=== PATIENT | female | born 1950 | race Caucasian/White ===

== ENCOUNTER 2019-02-28 00:27 | Inpatient (IN) | payer MEDICARE, OTHER ==
[~2019-02-28] VITALS: Ht 157.5 cm; Wt 84.4 kg
[~2019-02-28 00:27] MED LIST: ALBIPROI; CYCL10; DIAZ5; FURO40; HYDACE10B; METH10; Norco 5-325 Ta1 EACH PO; OXYC5; POTCHL10ER; Prednisone20 MG PO; SERT50
[2019-02-28 00:58] LABS: BASOPHILS ABSOLUTE AUTO 0.06 K/mm3 (0.00-0.23); BASOPHILS PERCENT AUTO 1 % (0-2); EOSINOPHILS PERCENT AUTO 0 % (0-6); Hematocrit 44.6 % (33.0-51.0); Mean Corpuscular HGB 35.5 pg (26.0-34.0); Mean Corpuscular HGB Conc 33.6 g/dL (31.5-36.5); Mean Corpuscular Volume 105 fL (80-100); Mean Platelet Volume 9.6 fL (9.1-12.4); Platelet Count 141 K/mm3 (150-400); RDW Coefficient Variation 12.2 % (11.7-14.2); RDW Standard Deviation 47.5 fL (35.1-46.3); Red Blood Cell Count 4.23 M/mm3 (3.80-5.20); White Blood Cell Count 6.38 K/mm3 (4.00-11.30)
[2019-02-28 00:59] LABS: IMMATURE GRAN ABSOLUTE AUTO 0.06 K/mm3 (0.00-0.10); IMMATURE GRAN PERCENT AUTO 1 % (0-1); LYMPHOCYTES ABSOLUTE AUTO 2.43 K/mm3 (0.84-5.20); LYMPHOCYTES PERCENT AUTO 38 % (21-46); MONOCYTES ABSOLUTE AUTO 0.52 K/mm3 (0.16-1.47); MONOCYTES PERCENT AUTO 8 % (4-13); NEUTROPHILS ABSOLUTE AUTO 3.31 K/mm3 (1.96-9.15); NEUTROPHILS PERCENT AUTO 52 % (41-73)
[2019-02-28 01:06] LABS: Source, Urine Clean Catch
[2019-02-28 01:09] LABS: Appearance, Urine Cloudy (Clear); Blood, Urine 2+ (Neg); Color, Urine Amber (P-Yellow); Glucose Qualitative, Urine Neg (Neg); Ketones, Urine 3+ (Neg); Leukocyte Esterase, Urine 3+ (Neg); Nitrite, Urine Pos (Neg); Protein, Urine 2+ (Neg); Urobilinogen, Urine 1+ (Normal)
[2019-02-28 01:10] LABS: Bilirubin, Urine 1+ (Neg)
[2019-02-28 01:13] LABS: International Normalized Ratio 1.14; Prothrombin Time Results 11.9 Sec (9.7-11.5)
[2019-02-28 01:15] LABS: Red Blood Cells, Urine 0-2 /hpf (0-2); White Blood Cells, Urine 50-100 /hpf (0-5)
[2019-02-28 01:16] LABS: Bacteria Many /hpf; Squamous Epithelial Cells Not Seen /hpf (Few)
[2019-02-28 01:17] LABS: Alanine Aminotransfer (ALT/SGP 37 U/L (12-78); Albumin/Globulin Ratio 0.6 (0.8-1.8); Alk Phos 91 U/L (50-136); Anion Gap 10 mmol/L (6-16); Aspartate Aminotrans (AST/SGOT 60 U/L (12-37); Bilirubin, Total 0.7 mg/dL (0.1-1.0); Blood Urea Nitrogen 13 mg/dL (8-24); CO2, Blood 21 mmol/L (21-32); Calcium, Blood 8.1 mg/dL (8.5-10.1); Chloride, Blood 115 mmol/L (98-108); Creatinine, Blood 0.42 mg/dL (0.40-1.00); Globulin, Blood 4.7 g/dL (2.2-4.0); Glomerular Filtration Rate >60 (60-); Glucose, Blood 120 mg/dL (70-99); Potassium, Blood 3.5 mmol/L (3.5-5.5); Sodium, Blood 146 mmol/L (136-145); Total Protein, Blood 7.7 g/dL (6.4-8.2); Troponin I <0.015 ng/mL (0.000-0.040)
[2019-02-28 01:26] LABS: U Amphetamine Screen Not Detected; U Barbituate Screen Not Detected; U Benzodiazapine Screen Not Detected; U Buprenorphine Screen Not Detected; U Cannabinoids Screen Not Detected; U Cocaine Screen Not Detected; U Methadone Screen DETECTED; U Methamphetamine Screen Not Detected; U Opiates Screen Not Detected; U Oxycodone Screen Not Detected; U Phencyclidine Screen Not Detected; U Propoxyphene Screen Not Detected
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
[2019-02-28] MEDS ORDERED: ACET500 PO (05:03)
--- NOTE | 2019-02-28 08:50 | NUR ---
ASSUMED CARE PT. ALERT AND ORIENTED THIS AM. TEARFUL. REPORTS THAT SHE HASNT LEFT HER HOUSE IN OVER A YEAR. PT. STATES "ITS JUST A MEAN WORLD AND I DONT LIKE IT". PT. LS CLEAR T/O. PT MED FOR A HEADACHE THIS AM. PT. DENIES ANY ABD. PAIN AT THIS TIME. REPORTS SHE HAS CHRONIC DIARRHEA AND TAKES IMMODIUM DAILY. PT. HAD A MED. DARK TARRY STOOL THIS AM PER AGRONOMY INSTRUCTOR. PT. VSS. NADN. CALL LIGHT IN REACH.
--- NOTE | 2019-02-28 09:31 | NUR ---
PROVIDER IN TO SEE PT.
--- NOTE | 2019-02-28 13:06 | NUR ---
Patient is lying in bed and alert. Patient immediately shares about her struggle with depression and that she hasn't left her apartment in a year because of fear and depression. She tells me that she is in spiritual distress as well. As I ask questions and listen to her story I explore with patient sources of dignity and purpose, I remind her of some of the ybarra areas that her la points to in the area of value and image and I hand her inspirational reading material (that line up with her belief system). As we discuss the importance of anti-depression meds, therapy, healthy spiritual connections and diet and exercise patient states that she feels like she can take these small but important steps. I provide empathic listening, companionship and prayer. Patient responds well and shows signs of restored la and hope.
--- NOTE | 2019-02-28 15:23 | NUR ---
DR. HUNTER IN TO SEE PT PLANS FOR REPEAT H&H. CLEAR LIQUIDS OKAY
[2019-02-28 15:45] LABS: Hematocrit 40.1 % (33.0-51.0); Hemoglobin 13.1 g/dL (11.5-16.0)
--- NOTE | 2019-02-28 16:39 | NUR ---
SHIFT SUMMARY PT. REMAINS ALERT AND ORIENTED. PT. VSS T/O SHIFT. REPEAT H&H DONE PER DR. HUNTER. PT. ON CLEAR LIQUID DIET. ABLE TO REPOSTION SELF NEEDED. NADN. CALL LIGHT IN REACH. REPORT TO ONCOMING RN.
--- NOTE | 2019-02-28 18:34 | NUR ---
DR. IVEYUFF IN TO SEE PT PLANS FOR NEW MEDICATION THIS PM.
--- NOTE | 2019-02-28 21:31 | NUR ---
ASSUMED CARE OF PATIENT AT APPROXIMATELY 1910 FROM JASON Cabral RN. PATIENT ALERT AND ORIENTED; FORGETUL AT TIMES; FLAT. PATIENT REPORTS CHRONIC BACK PAIN. PATIENT DENIES NUMBNESS, TINGLING, DIZZINESS AND NAUSEA. PATIENT REPORTS THAT SHE DOESNT LIKE TO EAT BECAUSE IT WILL CAUSE HER TO HAVE A BM. PATIENT REPORTS LOOSE BMS FOR YEARS AND REPORTS SHE TAKES IMMODIUM FOR YEARS. REPORTS "IBS-D"; STRESS INCREASES BM. PATIENT HAS BEEN INCONTINENT OF BROWN LIQUID STOOLS; ABLE TO GET TO BATHROOM WITH ONE ASSIST AND FWW. PIV S/L. ST ON TELE; OXYGEN SATURATION ABOVE 90% ON ROOM AIR. PATIENT CURRENTLY RESTING IN BED; CALL LIGHT IN REACH; BED IN LOWEST POSISTION; BED ALARM ON; WILL CONTINUE TO MONITOR AND ASSESS UNTIL END OF SHIFT.
[2019-03-01 04:39] LABS: Anion Gap 9 mmol/L (6-16); Blood Urea Nitrogen 6 mg/dL (8-24); Bun/Creatinine Ratio 14.3 (12.0-20.0); CO2, Blood 22 mmol/L (21-32); Calcium, Blood 7.8 mg/dL (8.5-10.1); Chloride, Blood 116 mmol/L (98-108); Creatinine, Blood 0.42 mg/dL (0.40-1.00); Glomerular Filtration Rate >60 (60-); Glucose, Blood 76 mg/dL (70-99); Potassium, Blood 3.8 mmol/L (3.5-5.5); Sodium, Blood 147 mmol/L (136-145)
[2019-03-01 04:53] LABS: BASOPHILS ABSOLUTE AUTO 0.05 K/mm3 (0.00-0.23); BASOPHILS PERCENT AUTO 1 % (0-2); EOSINOPHILS ABSOLUTE AUTO 0.13 K/mm3 (0.00-0.68); EOSINOPHILS PERCENT AUTO 3 % (0-6); Hematocrit 38.6 % (33.0-51.0); Hemoglobin 12.9 g/dL (11.5-16.0); IMMATURE GRAN ABSOLUTE AUTO 0.01 K/mm3 (0.00-0.10); IMMATURE GRAN PERCENT AUTO 0 % (0-1); LYMPHOCYTES ABSOLUTE AUTO 2.32 K/mm3 (0.84-5.20); LYMPHOCYTES PERCENT AUTO 55 % (21-46); MONOCYTES ABSOLUTE AUTO 0.39 K/mm3 (0.16-1.47); MONOCYTES PERCENT AUTO 9 % (4-13); Mean Corpuscular HGB 35.9 pg (26.0-34.0); Mean Corpuscular HGB Conc 33.4 g/dL (31.5-36.5); Mean Corpuscular Volume 108 fL (80-100); Mean Platelet Volume 9.8 fL (9.1-12.4); NEUTROPHILS ABSOLUTE AUTO 1.36 K/mm3 (1.96-9.15); NEUTROPHILS PERCENT AUTO 32 % (41-73); Platelet Count 91 K/mm3 (150-400); RDW Standard Deviation 47.5 fL (35.1-46.3); Red Blood Cell Count 3.59 M/mm3 (3.80-5.20); White Blood Cell Count 4.26 K/mm3 (4.00-11.30)
--- NOTE | 2019-03-01 06:15 | NUR ---
PATIENT SLEPT ABOUT EIGHT HOURS; REPORTS REMERON HELPED HER TO SLEEP IN THE BEGINNING. PATIENT HAD SOME LOOSE STOOL FIRST HALF OF SHIFT. VSS. NO OTHER ACUTE CHANGES TO REPORT. WILL CONTINUE TO MONITOR AND ASSESS UNTIL END OF SHIFT.
--- NOTE | 2019-03-01 10:58 | NUR ---
Spoke with Dr. Fallon who called to check on the patient. Antonia states that she was able to sleep last night for a couple of hours, but then got woken up by the staff for vital signs and lab draws, but otherwise felt like the dose was okay. States she would like to keep the dose the same and see how it goes. This was communicated to Dr. Fallon.
--- NOTE | 2019-03-01 11:13 | NUR ---
Call to Day surgery to find out what is scheduled for the patient, and what time. Told that EGD scheduled for 1 pm. The pt was informed of this. She has been NPO since clear liquid breakfast, and has been having diarrhea. States that she has loose stools at baseline, and dependent upon immodium in order to combat this. Unfortunately, due to the lack of information this morning, bowel care orders were understood to be prep for a colonoscopy ( no information was communicated to staff except for an NPO order this morning at 0800). She expressed difficulty in getting out to her appointments due to leaving her and taking the car, depression due to stopping her medications and subsequently being house-bound for 1 year, and economic constraints as well as distance to accessible public bus. director of cardiopulmonary services consultation was ordered.
--- NOTE | 2019-03-01 14:54 | NUR ---
1345 Pt was taken for EGD by day surgery staff.
--- NOTE | 2019-03-01 15:13 | NUR ---
Telephone report received from Franck Cortez at this time. The pt is returning from day surgery post EGD shortly.
--- NOTE | 2019-03-01 15:42 | NUR ---
Melly returned to the room via stretcher, and stated that she needed to void. She denied dizzyness on sitting up, and then upon standing. Walked to the bathroom using the walker, with standby assistance. Assisted back to bed, and given pudding to eat at her request. Vital signs noted stable.
--- NOTE | 2019-03-01 22:26 | NUR ---
ASSUMED CARE OF PATIENT AT APPROXIMATELY 1915 FROM TABATHA Carlin RN. PATIENT ALERT AND ORIENTED; FORGETUL AT TIMES; FLAT. PATIENT DENIES PAIN, NUMBNESS, TINGLING, DIZZINESS AND NAUSEA. PATIENT REPORTS THAT SHE IS TIRED; REPORTS SHE ATE A BIG DINNER. PATIENT IS ONE ASSIST WITH FWW. PATIENT S/P EGD TODAY; NO INTERVENTIONS REPORTED; POSSIBLE DISCHARGE IN AM. NSR ON TELE; OXYGEN SATURATION ABOVE 90% ON ROOM AIR. PIV S/L. PATIENT CURRENTLY RESTING IN BED; CALL LIGHT IN REACH; BED IN LOWEST POSISTION; BED ALARM ON; WILL CONTINUE TO MONITOR AND ASSESS UNTIL END OF SHIFT.
[2019-03-02 03:50] LABS: Hematocrit 42.8 % (33.0-51.0); Hemoglobin 14.3 g/dL (11.5-16.0)
[2019-03-02 04:12] LABS: Albumin, Blood 2.8 g/dL (3.4-5.0); Anion Gap 8 mmol/L (6-16); Blood Urea Nitrogen 8 mg/dL (8-24); Bun/Creatinine Ratio 18.2 (12.0-20.0); CO2, Blood 25 mmol/L (21-32); Calcium, Blood 8.1 mg/dL (8.5-10.1); Chloride, Blood 112 mmol/L (98-108); Creatinine, Blood 0.44 mg/dL (0.40-1.00); Glomerular Filtration Rate >60 (60-); Glucose, Blood 96 mg/dL (70-99); Phosphorus, Blood 3.9 mg/dL (2.5-4.9); Potassium, Blood 3.8 mmol/L (3.5-5.5); Sodium, Blood 145 mmol/L (136-145)
--- NOTE | 2019-03-02 06:35 | NUR ---
PATIENT SLEPT ABOUT TEN HOURS LAST NIGHT. VSS. H/H STABLE THIS AM. NO OTHER ACUTE CHANGES TO REPORT. WILL CONTINUE TO MONITOR AND ASSESS UNTIL END OF SHIFT.
[2019-03-02] MEDS ORDERED: HIGH POTENCY P1 EACH PO (11:22)
[2019-03-02] MEDS ORDERED: Anti-Diarrheal2 MG PO (11:23)
[2019-03-02] MEDS ORDERED: MIRT15 PO (11:24)
[2019-03-02] MEDS ORDERED: TRAM50 PO (11:24)
[2019-03-02] MEDS ORDERED: CEPH500 PO (11:25)
== END 2019-03-02 14:00 | disposition home or self-care (01) | DRG 871 ==
LOC: ER 00:27 → PCU 03:54
PROVIDERS: Emergency Medicine; Internal Medicine; Internal Medicine Gastroenterology; ADMIT Hospitalist
PROC: 0DJ08ZZ Inspection of Upper Intestinal Tract, Via Natural or Artificial Opening Endoscopic (ICD-10-PCS; principal; 2019-03-01 13:30)
DX: A41.50 Gram-negative sepsis, unspecified (principal); G92 Toxic encephalopathy; K29.71 Gastritis, unspecified, with bleeding; K26.4 Chronic or unspecified duodenal ulcer with hemorrhage; N39.0 Urinary tract infection, site not specified; E87.2 Acidosis; E87.1 Hypo-osmolality and hyponatremia; I10 Essential (primary) hypertension; R65.20 Severe sepsis without septic shock; F17.210 Nicotine dependence, cigarettes, uncomplicated; F32.9 Major depressive disorder, single episode, unspecified; E86.1 Hypovolemia; B19.20 Unspecified viral hepatitis C without hepatic coma; E86.0 Dehydration; M54.9 Dorsalgia, unspecified; K29.80 Duodenitis without bleeding; F34.1 Dysthymic disorder
CPT/HCPCS: 36415; 80048; 80053; 80069; 81001; 82140; 83605; 83690; 84484; 85014; 85018; 85025; 85610; 87040; 87077; 87086; 87186; 93005; 93010; 96365; 96375; 97110; 97116; 97162; 97165; 97535; 99285-25; C9113; G0480; J0696; J2250; J2704; J7030; J7120; P9612

== ENCOUNTER → 2019-05-04 | Outpatient (CLI) | payer MEDICARE, OTHER ==
[~2019-05-04] MED LIST changes: +ACET500 PO; +Anti-Diarrheal2 MG PO; +CEPH500 PO; +HIGH POTENCY P1 EACH PO; +MIRT15 PO; +TRAM50 PO
[2019-05-04 19:30] LABS: Bilirubin, Urine Neg (Neg); Blood, Urine 1+ (Neg); Glucose Qualitative, Urine Neg (Neg); Ketones, Urine Neg (Neg); Leukocyte Esterase, Urine 2+ (Neg); Nitrite, Urine Neg (Neg); Protein, Urine Neg (Neg); Urobilinogen, Urine 1+ (Normal)
[2019-05-04 19:35] LABS: Appearance, Urine Clear (Clear); Color, Urine Yellow (P-Yellow)
[2019-05-04 19:43] LABS: Bacteria Mod /hpf; Red Blood Cells, Urine 0-2 /hpf (0-2); Squamous Epithelial Cells Few /hpf (Few)
== END | disposition home or self-care (01) ==
LOC: LAB 18:42 → LAB SHORT 18:42
PROVIDERS: Registered Nurse
DX: N39.0 Urinary tract infection, site not specified (principal)
CPT/HCPCS: 81001; 87077; 87086; 87186

== ENCOUNTER 2020-04-07 09:12 | Inpatient (IN) | payer MEDICARE, OTHER | END 2020-04-10 15:26 | DRG 872 | LOC: ER 09:12 → MEDS 11:56 | PROVIDERS: ADMIT Hospitalist | DX: A41.51 Sepsis due to Escherichia coli [E. coli] (principal); N10 Acute pyelonephritis; Z68.41 Body mass index [BMI] 40.0-44.9, adult; R65.20 Severe sepsis without septic shock; Z20.828 Contact with and (suspected) exposure to other viral communicable diseases; J44.9 Chronic obstructive pulmonary disease, unspecified; D69.6 Thrombocytopenia, unspecified; F32.9 Major depressive disorder, single episode, unspecified; G89.29 Other chronic pain; I10 Essential (primary) hypertension; M54.9 Dorsalgia, unspecified; Z87.891 Personal history of nicotine dependence; Z86.19 Personal history of other infectious and parasitic diseases; Z98.1 Arthrodesis status; E66.9 Obesity, unspecified ==

== ENCOUNTER → 2020-05-15 | Outpatient (CLI) | payer MEDICARE, OTHER ==
[~2020-05-15] MED LIST changes: -Anti-Diarrheal2 MG PO; +BREO ELLIPTA 11 EAC1 INH; +CEFU500T30 PO; +DESVENLAFAXINE25 MG PO; +HYDROCHLOROTH12.5 MG PO; +LOPE2C PO; +Ventolin/Prove6.7 GM INH
[2020-05-15 12:31] LABS: Bilirubin, Urine Neg (Neg); Blood, Urine 1+ (Neg); Glucose Qualitative, Urine Neg (Neg); Ketones, Urine Neg (Neg); Leukocyte Esterase, Urine Neg (Neg); Nitrite, Urine Neg (Neg); Protein, Urine 1+ (Neg); Specific Gravity, Urine 1.015 (1.003-1.022); Urobilinogen, Urine 2+ (Normal); pH, Urine 6.5 (5.0-8.0)
[2020-05-15 13:02] LABS: Appearance, Urine Clear (Clear); Bacteria Not Seen /hpf; Color, Urine Amber (P-Yellow); Red Blood Cells, Urine 0-2 /hpf (0-2); Squamous Epithelial Cells Few /hpf (Few); White Blood Cells, Urine Not Seen /hpf (0-5)
== END | disposition home or self-care (01) ==
LOC: LAB HH 10:37
PROVIDERS: Registered Nurse
DX: N39.0 Urinary tract infection, site not specified (principal)
CPT/HCPCS: 81001

== ENCOUNTER → 2020-05-23 | Outpatient (CLI) | payer MEDICARE, OTHER ==
[2020-05-23 19:08] LABS: Appearance, Urine Clear (Clear); Bilirubin, Urine Neg (Neg); Blood, Urine Neg (Neg); Color, Urine Yellow (P-Yellow); Glucose Qualitative, Urine Neg (Neg); Ketones, Urine Neg (Neg); Leukocyte Esterase, Urine Neg (Neg); Nitrite, Urine Neg (Neg); Protein, Urine Neg (Neg); Urobilinogen, Urine 2+ (Normal)
== END | disposition home or self-care (01) ==
LOC: LAB 18:44 → LAB SHORT 18:44
PROVIDERS: Registered Nurse
DX: N39.0 Urinary tract infection, site not specified (principal)
CPT/HCPCS: 81003

== ENCOUNTER 2020-12-22 13:48 | Inpatient (IN) | payer MEDICARE, OTHER ==
[~2020-12-22] VITALS: Ht 149.9 cm; Wt 70.1 kg
[2020-12-22 14:24] LABS: BASOPHILS ABSOLUTE AUTO 0.05 K/mm3 (0.00-0.23); BASOPHILS PERCENT AUTO 0 % (0-2); EOSINOPHILS ABSOLUTE AUTO 0.03 K/mm3 (0.00-0.68); EOSINOPHILS PERCENT AUTO 0 % (0-6); Hematocrit 38.6 % (33.0-51.0); Hemoglobin 12.9 g/dL (11.5-16.0); IMMATURE GRAN ABSOLUTE AUTO 0.11 K/mm3 (0.00-0.10); IMMATURE GRAN PERCENT AUTO 1 % (0-1); LYMPHOCYTES ABSOLUTE AUTO 0.79 K/mm3 (0.84-5.20); LYMPHOCYTES PERCENT AUTO 6 % (21-46); MONOCYTES ABSOLUTE AUTO 0.88 K/mm3 (0.16-1.47); MONOCYTES PERCENT AUTO 7 % (4-13); Mean Corpuscular HGB 34.7 pg (26.0-34.0); Mean Corpuscular HGB Conc 33.4 g/dL (31.5-36.5); Mean Corpuscular Volume 104 fL (80-100); Mean Platelet Volume 10.9 fL (9.1-12.4); NEUTROPHILS ABSOLUTE AUTO 11.08 K/mm3 (1.96-9.15); NEUTROPHILS PERCENT AUTO 86 % (41-73); Platelet Count 141 K/mm3 (150-400); RDW Coefficient Variation 16.1 % (11.7-14.2); RDW Standard Deviation 61.4 fL (35.1-46.3); Red Blood Cell Count 3.72 M/mm3 (3.80-5.20); White Blood Cell Count 12.94 K/mm3 (4.00-11.30)
[2020-12-22] MEDS ORDERED: Prinivil10 MG PO (14:42)
[2020-12-22] MEDS ORDERED: TOPROL XL50 M1 PO (14:42)
[2020-12-22 14:53] LABS: Troponin I 0.086 ng/mL (0.000-0.040)
[2020-12-22 15:03] LABS: Free Thyroxine 1.77 ng/dL (0.70-1.60); Magnesium, Blood 1.7 mg/dL (1.6-2.4)
[2020-12-22 15:04] LABS: International Normalized Ratio 1.16; Prothrombin Time Results 12.4 Sec (9.7-11.5)
[2020-12-22 15:05] LABS: Thyroid Stimulating Hormone 2.86 uIU/mL (0.360-4.800)
[2020-12-22 15:17] LABS: Alanine Aminotransfer (ALT/SGP 21 U/L (12-78); Albumin, Blood 2.4 g/dL (3.4-5.0); Albumin/Globulin Ratio 0.4 (0.8-1.8); Alk Phos 88 U/L (50-136); Anion Gap 7 mmol/L (6-16); Aspartate Aminotrans (AST/SGOT 44 U/L (12-37); Blood Urea Nitrogen 22 mg/dL (8-24); Bun/Creatinine Ratio 40.5 (12.0-20.0); CO2, Blood 20 mmol/L (21-32); Chloride, Blood 106 mmol/L (98-108); Creatinine, Blood 0.54 mg/dL (0.40-1.00); Globulin, Blood 5.8 g/dL (2.2-4.0); Glomerular Filtration Rate >60 (60-); Glucose, Blood 131 mg/dL (70-99); Potassium, Blood 4.4 mmol/L (3.5-5.5); Sodium, Blood 133 mmol/L (136-145); Total Protein, Blood 8.2 g/dL (6.4-8.2)
[2020-12-22 17:55] LABS: Appearance, Urine Hazy (Clear); Blood, Urine 5+ (Neg); Color, Urine Amber (P-Yellow); Glucose Qualitative, Urine Neg (Neg); Ketones, Urine 1+ (Neg); Leukocyte Esterase, Urine 3+ (Neg); Nitrite, Urine Pos (Neg); Protein, Urine 3+ (Neg); Urobilinogen, Urine 3+ (Normal)
[2020-12-22 18:07] LABS: Bilirubin, Urine 1+ (Neg)
[2020-12-22 18:08] LABS: Bacteria Many /hpf; Red Blood Cells, Urine 25-50 /hpf (0-2); Squamous Epithelial Cells Few /hpf (Few); White Blood Cells, Urine 25-50 /hpf (0-5)
[2020-12-24 00:34] LABS: BASOPHILS ABSOLUTE AUTO 0.03 K/mm3 (0.00-0.23); BASOPHILS PERCENT AUTO 0 % (0-2); EOSINOPHILS ABSOLUTE AUTO 0.15 K/mm3 (0.00-0.68); EOSINOPHILS PERCENT AUTO 2 % (0-6); Hemoglobin 11.6 g/dL (11.5-16.0); IMMATURE GRAN ABSOLUTE AUTO 0.08 K/mm3 (0.00-0.10); IMMATURE GRAN PERCENT AUTO 1 % (0-1); LYMPHOCYTES ABSOLUTE AUTO 1.63 K/mm3 (0.84-5.20); LYMPHOCYTES PERCENT AUTO 16 % (21-46); MONOCYTES ABSOLUTE AUTO 1.32 K/mm3 (0.16-1.47); MONOCYTES PERCENT AUTO 13 % (4-13); Mean Corpuscular HGB 33.7 pg (26.0-34.0); Mean Corpuscular HGB Conc 33.1 g/dL (31.5-36.5); Mean Corpuscular Volume 102 fL (80-100); Mean Platelet Volume 10.7 fL (9.1-12.4); NEUTROPHILS ABSOLUTE AUTO 7.02 K/mm3 (1.96-9.15); NEUTROPHILS PERCENT AUTO 69 % (41-73); Platelet Count 113 K/mm3 (150-400); RDW Coefficient Variation 15.8 % (11.7-14.2); RDW Standard Deviation 59.6 fL (35.1-46.3); Red Blood Cell Count 3.44 M/mm3 (3.80-5.20); White Blood Cell Count 10.23 K/mm3 (4.00-11.30)
[2020-12-24 00:50] LABS: Albumin, Blood 2.3 g/dL (3.4-5.0); Anion Gap 9 mmol/L (6-16); Blood Urea Nitrogen 21 mg/dL (8-24); Bun/Creatinine Ratio 44.9 (12.0-20.0); CO2, Blood 22 mmol/L (21-32); Calcium, Blood 8.1 mg/dL (8.5-10.1); Chloride, Blood 103 mmol/L (98-108); Creatinine, Blood 0.47 mg/dL (0.40-1.00); Glomerular Filtration Rate >60 (60-); Glucose, Blood 105 mg/dL (70-99); Phosphorus, Blood 2.8 mg/dL (2.5-4.9); Potassium, Blood 3.4 mmol/L (3.5-5.5); Sodium, Blood 134 mmol/L (136-145)
[2020-12-24] MEDS ORDERED: VENL75ER PO (15:53)
[2020-12-24] MEDS ORDERED: DILT60 PO (16:03)
[2020-12-24] MEDS ORDERED: DOCU100 PO (16:04)
[2020-12-24] MEDS ORDERED: XARELTO20 MG PO (16:05)
[2020-12-24] MEDS ORDERED: ROXICODONE5 MG PO (16:05)
[2020-12-24] MEDS ORDERED: CEPH500 PO (16:06)
== END 2020-12-24 16:40 | disposition home or self-care (01) | DRG 281 ==
LOC: ER 13:48 → PCU 16:31
PROVIDERS: Emergency Medicine; Physician Assistant; ADMIT Internal Medicine
DX: I48.91 Unspecified atrial fibrillation (principal); I21.A1 Myocardial infarction type 2; E87.1 Hypo-osmolality and hyponatremia; I10 Essential (primary) hypertension; J44.9 Chronic obstructive pulmonary disease, unspecified; Z87.891 Personal history of nicotine dependence; G89.29 Other chronic pain; Z66 Do not resuscitate; M54.9 Dorsalgia, unspecified; F32.9 Major depressive disorder, single episode, unspecified; B19.20 Unspecified viral hepatitis C without hepatic coma
CPT/HCPCS: 36415; 71045; 78452; 80053; 80069; 81001; 82607; 82746; 83735; 84439; 84443; 84484; 85025; 85610; 85730; 87077; 87086; 87186; 93005; 93010; 93017; 94640; 94760; 94761; 96365; 96366; 96376; 99285-25; A9270; A9500; J0280; J0696; J1644; J2785; J3475

== ENCOUNTER 2021-01-04 21:44 | Inpatient (IN) | payer MEDICARE, OTHER ==
[~2021-01-04] VITALS: Ht 167.6 cm; Wt 73.4 kg
[~2021-01-04 21:44] MED LIST changes: +DILT60 PO; +DOCU100 PO; +Prinivil10 MG PO; +ROXICODONE5 MG PO; +TOPROL XL50 M1 PO; +VENL75ER PO; +XARELTO20 MG PO
[2021-01-04 22:21] LABS: Source, Urine Catheter
[2021-01-04 22:24] LABS: BASOPHILS ABSOLUTE AUTO 0.12 K/mm3 (0.00-0.23); BASOPHILS PERCENT AUTO 1 % (0-2); EOSINOPHILS ABSOLUTE AUTO 0.14 K/mm3 (0.00-0.68); EOSINOPHILS PERCENT AUTO 1 % (0-6); Hematocrit 36.3 % (33.0-51.0); Hemoglobin 12.1 g/dL (11.5-16.0); IMMATURE GRAN ABSOLUTE AUTO 0.07 K/mm3 (0.00-0.10); IMMATURE GRAN PERCENT AUTO 1 % (0-1); LYMPHOCYTES ABSOLUTE AUTO 2.18 K/mm3 (0.84-5.20); LYMPHOCYTES PERCENT AUTO 21 % (21-46); MONOCYTES ABSOLUTE AUTO 1.49 K/mm3 (0.16-1.47); MONOCYTES PERCENT AUTO 15 % (4-13); Mean Corpuscular HGB 33.6 pg (26.0-34.0); Mean Corpuscular HGB Conc 33.3 g/dL (31.5-36.5); Mean Corpuscular Volume 101 fL (80-100); Mean Platelet Volume 9.6 fL (9.1-12.4); NEUTROPHILS PERCENT AUTO 61 % (41-73); Platelet Count 355 K/mm3 (150-400); RDW Coefficient Variation 14.6 % (11.7-14.2); RDW Standard Deviation 54.6 fL (35.1-46.3)
[2021-01-04 22:27] LABS: Bilirubin, Urine Neg (Neg); Blood, Urine 5+ (Neg); Glucose Qualitative, Urine Neg (Neg); Ketones, Urine Neg (Neg); Leukocyte Esterase, Urine 1+ (Neg); Nitrite, Urine Neg (Neg); Protein, Urine 1+ (Neg); Urobilinogen, Urine 3+ (Normal); pH, Urine 6.5 (5.0-8.0)
[2021-01-04 22:29] LABS: Appearance, Urine Clear (Clear); Color, Urine Yellow (P-Yellow)
[2021-01-04 22:36] LABS: Amorphous Light (0-Heavy); Bacteria Few /hpf; Mucus Light (0-Heavy); Red Blood Cells, Urine 50-100 /hpf (0-2); Squamous Epithelial Cells Few /hpf (Few)
[2021-01-04 22:37] LABS: Alanine Aminotransfer (ALT/SGP 15 U/L (12-78); Albumin, Blood 2.4 g/dL (3.4-5.0); Albumin/Globulin Ratio 0.5 (0.8-1.8); Alk Phos 76 U/L (50-136); Anion Gap 7 mmol/L (6-16); Aspartate Aminotrans (AST/SGOT 20 U/L (12-37); Bilirubin, Total 1.2 mg/dL (0.1-1.0); Blood Urea Nitrogen 21 mg/dL (8-24); Bun/Creatinine Ratio 30.4 (12.0-20.0); CO2, Blood 26 mmol/L (21-32); Calcium, Blood 8.3 mg/dL (8.5-10.1); Chloride, Blood 98 mmol/L (98-108); Creatinine, Blood 0.69 mg/dL (0.40-1.00); Globulin, Blood 5.2 g/dL (2.2-4.0); Glomerular Filtration Rate >60 (60-); Glucose, Blood 121 mg/dL (70-99); Potassium, Blood 3.6 mmol/L (3.5-5.5); Sodium, Blood 131 mmol/L (136-145); Total Protein, Blood 7.6 g/dL (6.4-8.2); Troponin I <0.015 ng/mL (0.000-0.040)
[2021-01-04] MEDS ORDERED: HYDCHL25 (23:06)
[2021-01-04] MEDS ORDERED: BREO ELLIPTA 11 EAC1 IH (23:07)
[2021-01-04 23:28] LABS: U Amphetamine Screen Not Detected; U Barbituate Screen Not Detected; U Benzodiazapine Screen Not Detected; U Buprenorphine Screen DETECTED; U Cannabinoids Screen DETECTED; U Cocaine Screen Not Detected; U Methadone Screen Not Detected; U Methamphetamine Screen Not Detected; U Opiates Screen DETECTED; U Oxycodone Screen DETECTED; U Phencyclidine Screen Not Detected; U Propoxyphene Screen Not Detected
[2021-01-05 02:53] LABS: Salicylate <1.7 mg/dL (2.8-20.0)
[2021-01-05 03:02] LABS: Acetaminophen, Random <2.0 ug/mL (10.0-30.0)
[2021-01-05 05:52] LABS: BASOPHILS ABSOLUTE AUTO 0.11 K/mm3 (0.00-0.23); BASOPHILS PERCENT AUTO 1 % (0-2); EOSINOPHILS ABSOLUTE AUTO 0.16 K/mm3 (0.00-0.68); EOSINOPHILS PERCENT AUTO 2 % (0-6); Hemoglobin 11.8 g/dL (11.5-16.0); IMMATURE GRAN ABSOLUTE AUTO 0.05 K/mm3 (0.00-0.10); IMMATURE GRAN PERCENT AUTO 1 % (0-1); LYMPHOCYTES PERCENT AUTO 25 % (21-46); MONOCYTES ABSOLUTE AUTO 1.36 K/mm3 (0.16-1.47); MONOCYTES PERCENT AUTO 13 % (4-13); Mean Corpuscular HGB Conc 33.7 g/dL (31.5-36.5); Mean Corpuscular Volume 101 fL (80-100); Mean Platelet Volume 9.6 fL (9.1-12.4); NEUTROPHILS ABSOLUTE AUTO 5.99 K/mm3 (1.96-9.15); NEUTROPHILS PERCENT AUTO 59 % (41-73); Platelet Count 328 K/mm3 (150-400); RDW Coefficient Variation 14.5 % (11.7-14.2); RDW Standard Deviation 53.1 fL (35.1-46.3); Red Blood Cell Count 3.47 M/mm3 (3.80-5.20); White Blood Cell Count 10.17 K/mm3 (4.00-11.30)
[2021-01-05 06:16] LABS: Anion Gap 9 mmol/L (6-16); Blood Urea Nitrogen 22 mg/dL (8-24); Bun/Creatinine Ratio 34.4 (12.0-20.0); CO2, Blood 23 mmol/L (21-32); Calcium, Blood 8.4 mg/dL (8.5-10.1); Chloride, Blood 100 mmol/L (98-108); Creatinine, Blood 0.64 mg/dL (0.40-1.00); Glomerular Filtration Rate >60 (60-); Glucose, Blood 106 mg/dL (70-99); Potassium, Blood 3.4 mmol/L (3.5-5.5); Sodium, Blood 132 mmol/L (136-145)
--- NOTE | 2021-01-05 10:07 | NUR ---
PT ADMITTED TO ICU AT 0945 FROM ER FOR ACCIDENTAL OVERDOSE OF XERELTO, EFFEXOR, AND DILTIAZEM. PT + FOR OPIATES. PT STATES THESE ARE PRESCRIBED BY JESUS CALL FOR CHRONIC BACK PAIN. PT ARRIVED VERY DROWSY, ABLE TO WAKE UP FOR QUESTIONS BUT FALLS QUICKLY BACK TO SLEEP. PT REQUESTED NARCOTICS FOR PAIN ON ADMIT; EXPLAINED TO PT MD MAY HOLD NARCOTICS FOR EXCESSIVE DROWSINESS, LOW BP, LOW HR RELATED TO OVERDOSE; TYLENOL AVAILABLE. PT APPEARED TO BE OKAY WITH THIS FOR NOW. PT POSITIONED FOR COMFORT. BUTTOCKS RED BUT PATRIA. PT ORIENTED TO NAME, , PLACE, SITUATION, YEAR. PT IN JUNCTIONAL RHYTHM W RATE 40'S ON ADMIT. PT MILDLY HYPOTENSIVE W MAP >60. PT REQUIRING O2 AT 10L VIA OXYMIZER WITH SATS >90%, RESP SHALLOW, LUNGS VERY DIMINISHED TO BASES, R WORSE THAN LEFT. POSSIBLE FINE RED RASH TO UPPER LIMBS NOTED.
--- NOTE | 2021-01-05 10:49 | NUR ---
PT REMAINS HYPOTENSIVE W MAPS 59-64. PT REMAINS IN JUNCTIONAL RHYTHM LOW 40'S. POISON CONTROL CALLED, BOLUS RECOMMENDED FOLLOWED BY DOPAMINE IF BOLUS UNSUCC. DR INGRAM CALLED AND UPDATE. BOLUS ORDERED, POTASSIUM CHANGED TO IV PT IS TOO DROWSY TO SAFELY TAKE PO AT THIS TIME.
--- NOTE | 2021-01-05 13:11 | NUR ---
BP IMPROVED SLIGHTLY AFTER BOLUS, MAPS >65. HR/RHYTHM UNCHANGED. MENTATION UNCHANGED.
--- NOTE | 2021-01-05 15:10 | NUR ---
DR INGRAM IN TO SEE PT, FULL UPDATE GIVEN. WILL CONT TO MONITOR CLOSELY. PT AWOKE TO VOICE, DENIED COMPLAINTS THEN FELL BACK TO SLEEP. K+ INFUSION COMPLETE.
--- NOTE | 2021-01-05 17:34 | NUR ---
PT HYPOTENSIVE W MAP 57. RYTHYM REMAINS IN JUNCTIONAL W RATE 42. DR INGRAM NOTIFIED, 1L BOLUS OF NS ORDERED. PT DOES APPEAR DRY W POOR SKIN TURGOR, DRY TONGUE. PT REMAINS DROWSY, AWAKENS TO VOICE.
--- NOTE | 2021-01-05 20:00 | NUR ---
ASSUMED CARE, PT ANSWERS APPROPRIATELY, KNOWS THAT SHE IS AT THE HOSPITAL AND WHY, SHE DID THINK IT WAS MAY. SHE SAID, "IT WAS JUST APRIL BECAUSE I SAW SOMETHING AND SO IT'S MAY". WHEN I REORIENTED HER TO THE FACT IT IS DECEMBER SHE SEEMED CONCERNED. SHE DID AGREE THAT SHE NEEDS SOME KIND OF HELP BECAUSE SHE ISN'T ABLE TO HANDLE HER MEDICATIONS BUT SHE FEELS THAT HER DAUGHTER IS ABLE TO HELP HER WITH THAT. SHE IS DROWSY, SHE COMPLAINS OF BACK PAIN AND STATES THAT SHE CAN ONLY HAVE "TYLENOL, THEY WON'T LET ME HAVE WHAT I WANT". PT REPOSITIONED WITH ASSISTANCE, TYLENOL GIVEN WITH SIPS OF WATER AND SHE SWALLOWED WELL, WITHOUT ANY COUGH OR CHOKING. SHE IS ABLE TO COUGH AND CLEAR HER LUNGS. SHE HAS AN EXP.WHEEZE PRESENT, SHE STATES THAT SHE HAS "COPD, SO THAT'S EXPECTED". DENIES ANY SHORTNESS OF BREATH. JUST DROWSY.
--- NOTE | 2021-01-05 22:50 | NUR ---
PT COMPLAINS OF FEELING NAUSEATED, NO MEDS. CALL TO . ORDERS REC'D
--- NOTE | 2021-01-06 00:36 | NUR ---
PT STATES FEELING BETTER AFTER MEDICATED FOR NAUSEA, ASKED IF SHE COULD STAND UP, I ENCOURAGED HER TO WAIT UNTIL MORNING FOR HER HEARTRATE AND BLOOD PRESSURE TO STABILIZE. SHE UNDERSTOOD. SHE ASKED ABOUT HER CATHETER, SHE CALLED IT A UTI. SHE ASKED IF IT WAS TIME FOR MORE TYLENOL, HADN'T BEEN QUITE LONG ENOUGH. SHE IS REMEMBERING MORE INTERACTIONS WITH STAFF AND BEING MORE APPROPRIATE. SHE DENIED ANY ASSISTAANCE FOR HELP IN POSITION CHANGE.
--- NOTE | 2021-01-06 06:21 | NUR ---
SUMMARY: VENKATESH WAS ABLE TO SLEEP SOME THROUGHOUT THE NIGHT, THE ONE EPISODE OF NAUSEA WAS RESOLVED WITH THE DOSE OF ZOFRAN. SHE HAS CONTINUED IN A BRADYCARDIA, JUNCTIONAL RHYTHM WITH OCC TO FREQUENT PVC'S. SHE HAD A RUN OR TWO OF BIJEMINY AND WAS NOTED TO HAVE PERFUSION WITH THOSE BEATS. SHE STATES SHE IS FEELING STRONGER THIS AM. SHE HAD KLAUS CRACKERS X 2 SETS THIS NIGHT. SHE IS TOLERATING HER WATER WELL AND LOOKING FORWARD TO BREAKFAST. SHE CONTINUES TO COMPLAIN OF BACK PAIN AND WISHES SHE COULD HAVE SOMETHING BESIDES JUST TYLENOL. WILL REPORT OFF TO NEXT SHIFT WHEN ABLE.
[2021-01-06 08:23] LABS: Anion Gap 9 mmol/L (6-16); Blood Urea Nitrogen 16 mg/dL (8-24); Bun/Creatinine Ratio 33.5 (12.0-20.0); CO2, Blood 20 mmol/L (21-32); Calcium, Blood 8.1 mg/dL (8.5-10.1); Chloride, Blood 108 mmol/L (98-108); Creatinine, Blood 0.48 mg/dL (0.40-1.00); Glomerular Filtration Rate >60 (60-); Glucose, Blood 89 mg/dL (70-99); Sodium, Blood 137 mmol/L (136-145)
[2021-01-06 08:27] LABS: Hematocrit 39.2 % (33.0-51.0); Hemoglobin 13.3 g/dL (11.5-16.0)
--- NOTE | 2021-01-06 08:27 | NUR ---
CARE OF PT ASSUMED AT 0700. PT AWAKE THIS AM RESTING IN BED, PT ALERT AND STATES SHE FEELS BETTER TODAY. RHYTHM FLUCTUATING BETWEEN SINUS JAYASHREE W HR 38-45 AND JUNCTIONAL RHYTHM IN 40'S. PT DENIES FEELING DIZZY, LIGHT HEADED OR NAUSEATED. BP STBALE. 02 AT DECREASED TO 5L VIA OXYMIZER THIS AM. WILL CONT TO TITRATE DOWN. BREAKFAST GIVEN TO PT THIS AM SHE IS WIDE AWAKE AND ASYMPTOMATIC. PT C/O PAIN, WILL GIVE TYLENOL, MAY ASK MD ABOUT TORADOL.
--- NOTE | 2021-01-06 11:19 | NUR ---
PT GIVEN FULL BED BATH. SMEAR BM CLEANED. BUTTOCKS REMAIN RED BUT PATRIA, MEPILEX PLACED FOR PROTECTION. NYSTATIN POWER PLACED TO YEAST IN FOLDS OF PANUS. PT TOLE BATH WELL. HR REMAINS SINUS FROM 45-55. BP STABLE.
--- NOTE | 2021-01-06 19:24 | NUR ---
PT HAS REMAINED IN SINUS RHYTHM FOR MOST OF SHIFT OCCASSIONALLY CHANGING TO JUNCTIONAL RHYTHM. RATE HAS SLOWLY INCREASED T/O SHIFT, RANGING BETWEEN 45-60. BP STABLE T/O SHIFT. PT W GOOD APPETITE. PT HAD VERY LARGE LIGHT BROWN BM TODAY. PT HAS SOME HEMATURIA WITH SMALL CLOTS, NO OTHER SIGNS OF BLEEDING. OXY WORKED WELL FOR PT'S BACK PAIN. POISON CONTROL UPDATED TODAY.
--- NOTE | 2021-01-06 20:39 | NUR ---
ASSUMED CARE FROM JOSÉ MANUEL QUARLES. PT STATES FEELING BETTER THROUGHOUT THE DAY, WOULD LIKE A PAIN PILL, STATED IT IS TOO EARLY BUT TOOK TYLENOL FOR THE INTERIM. BOOSTED IN BED, CATH CARE DONE, RED STREAKS AND CLOTS RETURN WITH YELLOW DRAINAGE TO GRAVITY. BLE'S WITH STASIS REDNESS, PT STATES NORMAL. NS @ 100ML/HR INFUSING IN THE LEFT WRIST/HAND. NO FURTHER NEEDS AT THIS TIME.
--- NOTE | 2021-01-06 20:41 | NUR ---
PT WITH HEART RATE IN THE 50'S TO LOW 60'S WITH STABLE BP, OXYGEN VIA 2L/NC.
--- NOTE | 2021-01-07 06:43 | NUR ---
THIS RN TOOK OVER CARE AT 0021 THIS AM, PATIENT SLEEPING ABLE TO WAKE UP EASILY WOKE UP AROUND 0400 REPORTING 8/10 BACK PAIN RECEIVED OXYCODONE 5MG PO REPORTED GOOD RELIEF, IS CURRENTLY RESTING IN BED.
--- NOTE | 2021-01-07 10:50 | NUR ---
UPDATE UPDATED POISON CONTROL ON PT STATUS. PT NOW MEDICAL STATUS NO TELE PER PHYSICIAN ORDER. PT REFUSING SNF PER [facility] SALES REPRESENTATIVE [employer].
--- NOTE | 2021-01-07 12:46 | NUR ---
TRANSFER PT TRANSFERRED TO ROOM 341 FROM ICU, MESSAGE LEFT FOR HER DAUGHTER
--- NOTE | 2021-01-07 12:59 | NUR ---
PT TRANSFER PT TRANSFERRED TO ROOM 341. REPORT GIVEN TO MEDICAL FLOOR RN. VS STABLE. PT BROUGHT BY BED WITH ALL BELONGINGS BY BED. ASKED PT IF I SHOULD NOTIFY DAUGHTER OF TRANSFER. PT SAID NO.
--- NOTE | 2021-01-07 17:48 | NUR ---
SUMMARY PT RESTING QUIETLY IN BED, WAKES EASILY, TRANSFERRED UP FROM ICU, ORIENTED PT TO ROOM AND CALL SYSTEM, MED PER EMAR FOR PAIN, PT HAS BEEN PLEASANT AND COOPERATIVE WITH CARE, DAUGHTER HAS BEEN IN TO VISIT, PLAN TO DC HOME SOON WITH HOME HEALTH, DAUGHTER AND PATIENT AGREEABLE TO THE PLAN, NO ACUTE CHANGES WILL CONTINUE TO MONITOR
--- NOTE | 2021-01-07 19:44 | NUR ---
SHIFT SUMMARY PT ALERT AND ORIENTED X 4. ANXIOUS. HR STABLE. BP STABLE. OXYGEN SATURATION MAINTAINED ABOVE 92% ON 2 L OF OXYGEN VIA NC. ABD DRESSING INTACT. COLOSTOMY PINK, WNL. DRESSING C/D/I. RAJWINDER DRAIN INTACT. SEE DRAINING CLEAR YELLOW DRAINAGE. MULLIGAN TO GRAVITY DRAIN. SURGEON AT BEDSIDE THIS AFTERNOON. NG TUBE REMOVED BY PHYSICIAN. CHOCOLATE DIPPER PUMP WITHIN REACH OF PT. PT'S RESP STATUS STABLE. CLEARED EACH SHIFT CHANGE. SURGEON INSTRUCTED TO CUT ABD BINDER AROUND STOMA. ABD BINDER AT BEDSIDE FOR COMFORT. AMIO GTT FINISHED THIS NOC. ORDERS FOR PO AMIODARONE PUT IN PER CARDIOLOGY. PHYSICIAN ORDER TO HAVE D5 WITH LR RUN D/T LOW BLOOD SUGAR. BLOOD SUGAR STABLE. SEE EHR. PT ABLE TO TURN SELF IN BED. 1-2 PERSON ASSIST TO CHAIR. REPORT GIVEN TO JOSÉ MANUEL RODRÍGUEZ.
--- NOTE | 2021-01-08 04:12 | NUR ---
SHIFT SUMMARY PATIENT HAD NO ACUTE CHANGES OBSERVED. AXOX 3 WITH FLAT AFFECT. ONE ASSIST TO BSC. TAKES MEDICATION WHOLE WITH WATER. MULLIGAN PATENT AND DRAINING. PIV REMAINS INTACT. REPORTED BACK/NECK PAIN X TWO AND OXYCODONE 5 MG GIVEN PER EMAR. ON 2L O2 NC BASELINE. NS INFUSING AT 100 mL/HR. VSS/AFEBRILE. DENIES SOB AND N/V. CALL LIGHT IN REACH. BED IN LOWEST POSITION. WILL CONTINUE TO MONITOR UNTIL DAY SHIFT NURSE ASSUMES CARE.
--- NOTE | 2021-01-08 16:41 | NUR ---
PATIENT DISCHARGE: PATIENT DISCHAGED TO HOME / XFR TO HOME HEALTH THIS SHIFT. MEDICATION RECONCILIATION COMPLETED; NO NEW MEDS TO REPORT. DISCHARGE EDUCATION COMPLETED WITH PATIENT AND FAMILY. PATIENT TRANSPORTED TO EXIT BY [facility] STAFF WITH WHEELCHAIR AT 1640. PATIENT DEPARTED [facility] VIA PRIVATE AUTO.
== END 2021-01-08 16:39 | disposition home health service (06) | DRG 917 ==
LOC: ER 21:44 → ICUW 21:45 → ERHOLD 21:45 → ICUW 01-05 08:56 → MEDS 01-07 12:40
PROVIDERS: Internal Medicine; Student in an Organized Health Care Education/Training Program; ADMIT Family Medicine
DX: T40.601A Poisoning by unspecified narcotics, accidental (unintentional), initial encounter (principal); J96.21 Acute and chronic respiratory failure with hypoxia; G92 Toxic encephalopathy; J98.11 Atelectasis; E87.1 Hypo-osmolality and hyponatremia; I50.22 Chronic systolic (congestive) heart failure; Z66 Do not resuscitate; R00.0 Tachycardia, unspecified; G89.29 Other chronic pain; I11.0 Hypertensive heart disease with heart failure; M54.9 Dorsalgia, unspecified; I48.0 Paroxysmal atrial fibrillation; F32.9 Major depressive disorder, single episode, unspecified; J44.9 Chronic obstructive pulmonary disease, unspecified; Z88.8 Allergy status to other drugs, medicaments and biological substances; Z91.048 Other nonmedicinal substance allergy status; Z79.899 Other long term (current) drug therapy; Z87.891 Personal history of nicotine dependence; Z98.890 Other specified postprocedural states; Z99.81 Dependence on supplemental oxygen
CPT/HCPCS: 36415; 51702; 71045; 80048; 80053; 81001; 83605; 83690; 84484; 85014; 85018; 85025; 93005; 93010; 93970; 94640; 94760; 97110; 97162; 97166; 97530; 99285-25; A9270; G0378; G0480; J2405; J3480; J7030

== ENCOUNTER 2021-01-19 11:04 | Observation (INO) | payer MEDICARE, OTHER ==
[~2021-01-19] VITALS: Ht 149.9 cm; Wt 72.0 kg
[~2021-01-19 11:04] MED LIST changes: +BREO ELLIPTA 11 EAC1 IH; +HYDCHL25
[2021-01-19 12:18] LABS: BASOPHILS ABSOLUTE AUTO 0.09 K/mm3 (0.00-0.23); BASOPHILS PERCENT AUTO 1 % (0-2); EOSINOPHILS ABSOLUTE AUTO 0.12 K/mm3 (0.00-0.68); EOSINOPHILS PERCENT AUTO 1 % (0-6); Hematocrit 27.9 % (33.0-51.0); Hemoglobin 9.2 g/dL (11.5-16.0); IMMATURE GRAN PERCENT AUTO 2 % (0-1); LYMPHOCYTES ABSOLUTE AUTO 2.29 K/mm3 (0.84-5.20); LYMPHOCYTES PERCENT AUTO 21 % (21-46); MONOCYTES ABSOLUTE AUTO 0.93 K/mm3 (0.16-1.47); MONOCYTES PERCENT AUTO 9 % (4-13); Mean Corpuscular HGB 33.9 pg (26.0-34.0); Mean Corpuscular Volume 103 fL (80-100); Mean Platelet Volume 9.6 fL (9.1-12.4); NEUTROPHILS ABSOLUTE AUTO 7.12 K/mm3 (1.96-9.15); NEUTROPHILS PERCENT AUTO 66 % (41-73); Platelet Count 284 K/mm3 (150-400); RDW Coefficient Variation 14.8 % (11.7-14.2); RDW Standard Deviation 54.5 fL (35.1-46.3); Red Blood Cell Count 2.71 M/mm3 (3.80-5.20); White Blood Cell Count 10.75 K/mm3 (4.00-11.30)
[2021-01-19 12:47] LABS: Acetaminophen, Random <2.0 ug/mL (10.0-30.0); Alanine Aminotransfer (ALT/SGP 10 U/L (12-78); Albumin/Globulin Ratio 0.4 (0.8-1.8); Alk Phos 77 U/L (50-136); Anion Gap 3 mmol/L (6-16); Aspartate Aminotrans (AST/SGOT 16 U/L (12-37); Bilirubin, Total 0.6 mg/dL (0.1-1.0); Blood Urea Nitrogen 20 mg/dL (8-24); Bun/Creatinine Ratio 44.9 (12.0-20.0); CO2, Blood 28 mmol/L (21-32); Calcium, Blood 8.4 mg/dL (8.5-10.1); Chloride, Blood 104 mmol/L (98-108); Creatinine, Blood 0.45 mg/dL (0.40-1.00); Globulin, Blood 4.6 g/dL (2.2-4.0); Glomerular Filtration Rate >60 (60-); Glucose, Blood 102 mg/dL (70-99); Salicylate <1.7 mg/dL (2.8-20.0); Sodium, Blood 135 mmol/L (136-145); Total Protein, Blood 6.6 g/dL (6.4-8.2)
[2021-01-19 13:35] LABS: U Amphetamine Screen Not Detected; U Barbituate Screen Not Detected; U Benzodiazapine Screen Not Detected; U Buprenorphine Screen Not Detected; U Cannabinoids Screen Not Detected; U Cocaine Screen Not Detected; U Methadone Screen Not Detected; U Methamphetamine Screen Not Detected; U Opiates Screen Not Detected; U Oxycodone Screen DETECTED; U Phencyclidine Screen Not Detected; U Propoxyphene Screen Not Detected
[2021-01-19] MEDS ORDERED: DILTIAZEM 24HR300 MG PO (13:56)
[2021-01-19 17:16] LABS: Hematocrit 27.3 % (33.0-51.0)
--- NOTE | 2021-01-19 18:35 | NUR ---
DAUGHTER SIMON CALLED BY THIS RN. DAUGHTER TEARFUL AND FEELS THAT PATIENT IS VERY DEPRESSED. REPORTS PT HAS LOST 50 LBS OVER THE LAST YEAR. REFUSES MEALS, SHOWERS, ORAL CARE, AND OFTEN TIMES TO GET OUT OF BED. PT IS ABLE TO AMBULATE TO , BUT IS INCONTINENT AT TIMES. DAUGHTER REPORTS, "I DON'T FEEL LIKE I CAN TAKE CARE OF HER ANYMORE, SHE JUST KEEPS GETTING WORSE, AND SHE DOESN'T WANT TO DO ANYTHING".
--- NOTE | 2021-01-19 18:50 | NUR ---
HOME OXYCODONE TAKEN TO PHARMACY FOR LOCK UP. SLIP IN RM 334 MED DRAWER.
--- NOTE | 2021-01-19 20:11 | NUR ---
pt seen in ER to impaired to jeremi much pt stated she has had severe diarrhea nd vomiting this week. plan is to admit may need to involve aps on her care.
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
[2021-01-20 05:06] LABS: BASOPHILS ABSOLUTE AUTO 0.05 K/mm3 (0.00-0.23); BASOPHILS PERCENT AUTO 1 % (0-2); EOSINOPHILS ABSOLUTE AUTO 0.11 K/mm3 (0.00-0.68); EOSINOPHILS PERCENT AUTO 1 % (0-6); Hematocrit 23.1 % (33.0-51.0); Hemoglobin 7.6 g/dL (11.5-16.0); IMMATURE GRAN ABSOLUTE AUTO 0.12 K/mm3 (0.00-0.10); IMMATURE GRAN PERCENT AUTO 1 % (0-1); LYMPHOCYTES ABSOLUTE AUTO 2.43 K/mm3 (0.84-5.20); LYMPHOCYTES PERCENT AUTO 23 % (21-46); MONOCYTES ABSOLUTE AUTO 0.96 K/mm3 (0.16-1.47); MONOCYTES PERCENT AUTO 9 % (4-13); Mean Corpuscular HGB 34.1 pg (26.0-34.0); Mean Corpuscular HGB Conc 32.9 g/dL (31.5-36.5); Mean Corpuscular Volume 104 fL (80-100); Mean Platelet Volume 9.3 fL (9.1-12.4); NEUTROPHILS ABSOLUTE AUTO 6.95 K/mm3 (1.96-9.15); NEUTROPHILS PERCENT AUTO 66 % (41-73); Platelet Count 225 K/mm3 (150-400); RDW Coefficient Variation 14.9 % (11.7-14.2); RDW Standard Deviation 54.7 fL (35.1-46.3); Red Blood Cell Count 2.23 M/mm3 (3.80-5.20); White Blood Cell Count 10.62 K/mm3 (4.00-11.30)
[2021-01-20 05:28] LABS: Alanine Aminotransfer (ALT/SGP 17 U/L (12-78); Albumin/Globulin Ratio 0.4 (0.8-1.8); Alk Phos 82 U/L (50-136); Anion Gap 8 mmol/L (6-16); Aspartate Aminotrans (AST/SGOT 34 U/L (12-37); Bilirubin, Total 0.6 mg/dL (0.1-1.0); Blood Urea Nitrogen 20 mg/dL (8-24); Bun/Creatinine Ratio 52.5 (12.0-20.0); CO2, Blood 25 mmol/L (21-32); Calcium, Blood 8.1 mg/dL (8.5-10.1); Chloride, Blood 107 mmol/L (98-108); Creatinine, Blood 0.38 mg/dL (0.40-1.00); Globulin, Blood 4.5 g/dL (2.2-4.0); Glomerular Filtration Rate >60 (60-); Glucose, Blood 106 mg/dL (70-99); Magnesium, Blood 1.9 mg/dL (1.6-2.4); Potassium, Blood 3.6 mmol/L (3.5-5.5); Sodium, Blood 140 mmol/L (136-145); Total Protein, Blood 6.5 g/dL (6.4-8.2)
[2021-01-20 16:57] LABS: Hematocrit 23.8 % (33.0-51.0); Hemoglobin 7.7 g/dL (11.5-16.0)
[2021-01-20 17:24] LABS: Percent Saturation 20.3 % (15.0-50.0)
--- NOTE | 2021-01-20 19:08 | NUR ---
SHIFT SUMMARY- PT IS A/O, PLESANT AND COOPERATIVE. SHE IS EATING AND DRINKING WELL. SHE IS RECIEVING PRN PAIN MEDICATION. SHE SLEPT INTERMITENTLY THROUGHOUT THIS SHIFT. DR. URBINA CONSULTED TODAY. HER BED IS IN THE LOW POSTION AND CALL LIGHT IS WITHIN REACH.
--- NOTE | 2021-01-20 20:02 | NUR ---
AWAKE AT HS, DISCUSSED WANTING PAIN MED AND SLEEP MED TOGETHER TONIGHT. AFFECT LETHARGIC, BUT APPEARS LESS DEPRESSED THAN NOTED 24 HR PREVIOUS. CALL LIGHT IN REACH.
--- NOTE | 2021-01-21 03:54 | NUR ---
RUBY DEVELOPER SUMMARY SOME VOICED COMPLAINTS OF PAIN EARLIER IN THE SHIFT, RECEIVED OXYCODONE AND REMERON AT HS ORDERED, MEDS EFFECTIVE, HAS BEEN RESTING QUIETLY WITH FEW INTERRUPTIONS SINCE THEN. AWAKE AT THIS TIME AND ATTEMPTED TO CLIMB OUT OF BED, INCONT OF URINE. LINEN CHANGED. REDIRECTED. BED ALARM ON. CALL LIGHT IN REACH. WILL CONT TO MONITOR.
[2021-01-21 04:47] LABS: Hematocrit 23.9 % (33.0-51.0); Hemoglobin 7.7 g/dL (11.5-16.0); Mean Corpuscular HGB 34.1 pg (26.0-34.0); Mean Corpuscular HGB Conc 32.2 g/dL (31.5-36.5); Mean Corpuscular Volume 106 fL (80-100); Mean Platelet Volume 9.5 fL (9.1-12.4); NRBC ABSOLUTE 0.02 K/mm3 (0.00-0.02); NRBC Auto 0.2 /100 WBC (0.0-0.2); Platelet Count 271 K/mm3 (150-400); RDW Standard Deviation 58.4 fL (35.1-46.3); Red Blood Cell Count 2.26 M/mm3 (3.80-5.20); White Blood Cell Count 12.13 K/mm3 (4.00-11.30)
[2021-01-21] MEDS ORDERED: MIRT30 PO (14:45)
[2021-01-21] MEDS ORDERED: DILTIAZEM 24HR300 M2 PO (14:45)
--- NOTE | 2021-01-21 17:07 | NUR ---
DISCHARGE SUMMARY PT DISCHARGED AT APPROX 1630 VIA WHEELCHAIR BY RN. DISCHARGE INSTRUCTIONS REVIEWED WITH PT AND DAUGHTER WHO WAS AT BEDSIDE. HOME MEDICATIONS RECIEVED FROM PHARMACY AND GIVEN BACK TO PT. NEW MEDS REVIEWED c PT AND TEACHING PROVIDED. NEEDED RX FAXED. PT STATED SHE HAD ALL OF HER BELONGINGS. IV REMOVED AND SITE APPEARED WITHIN NORMAL LIMITS.
== END 2021-01-21 17:13 | disposition home health service (06) ==
LOC: ER 11:04 → MEDS 11:05
PROVIDERS: Emergency Medicine; Nurse Practitioner Acute Care; ADMIT Internal Medicine
DX: T40.2X1A Poisoning by other opioids, accidental (unintentional), initial encounter (principal); G92 Toxic encephalopathy; F11.21 Opioid dependence, in remission; G89.29 Other chronic pain; M54.9 Dorsalgia, unspecified; I11.0 Hypertensive heart disease with heart failure; I50.22 Chronic systolic (congestive) heart failure; J44.9 Chronic obstructive pulmonary disease, unspecified; I48.0 Paroxysmal atrial fibrillation; D53.9 Nutritional anemia, unspecified; G47.33 Obstructive sleep apnea (adult) (pediatric); F03.90 Unspecified dementia, unspecified severity, without behavioral disturbance, psychotic disturbance, mood disturbance, and anxiety; F33.9 Major depressive disorder, recurrent, unspecified; Z87.891 Personal history of nicotine dependence; Z86.19 Personal history of other infectious and parasitic diseases; Z88.8 Allergy status to other drugs, medicaments and biological substances; Z91.048 Other nonmedicinal substance allergy status; Z79.01 Long term (current) use of anticoagulants; Z98.1 Arthrodesis status; Z66 Do not resuscitate
CPT/HCPCS: 36415; 51701; 80053; 82728; 83540; 83550; 83735; 85014; 85018; 85025; 85027; 93005; 93010; 94640; 94760; 96376; 97110; 97162; A9270; G0378; G0480; J1885

== ENCOUNTER 2021-02-05 14:16 | Emergency (ER) | payer MEDICARE, OTHER ==
[~2021-02-05] VITALS: Ht 149.9 cm; Wt 52.2 kg
[~2021-02-05 14:16] MED LIST changes: +DILTIAZEM 24HR300 M2 PO; +DILTIAZEM 24HR300 MG PO; +MIRT30 PO
[2021-02-05 15:02] LABS: BASOPHILS ABSOLUTE AUTO 0.05 K/mm3 (0.00-0.23); BASOPHILS PERCENT AUTO 1 % (0-2); EOSINOPHILS ABSOLUTE AUTO 0.12 K/mm3 (0.00-0.68); EOSINOPHILS PERCENT AUTO 2 % (0-6); Hematocrit 31.4 % (33.0-51.0); Hemoglobin 9.4 g/dL (11.5-16.0); IMMATURE GRAN ABSOLUTE AUTO 0.03 K/mm3 (0.00-0.10); IMMATURE GRAN PERCENT AUTO 0 % (0-1); LYMPHOCYTES ABSOLUTE AUTO 1.14 K/mm3 (0.84-5.20); LYMPHOCYTES PERCENT AUTO 17 % (21-46); MONOCYTES ABSOLUTE AUTO 0.77 K/mm3 (0.16-1.47); MONOCYTES PERCENT AUTO 11 % (4-13); Mean Corpuscular HGB Conc 29.9 g/dL (31.5-36.5); Mean Corpuscular Volume 107 fL (80-100); Mean Platelet Volume 9.7 fL (9.1-12.4); NEUTROPHILS ABSOLUTE AUTO 4.65 K/mm3 (1.96-9.15); NEUTROPHILS PERCENT AUTO 69 % (41-73); Platelet Count 269 K/mm3 (150-400); RDW Coefficient Variation 15.9 % (11.7-14.2); RDW Standard Deviation 62.7 fL (35.1-46.3); Red Blood Cell Count 2.94 M/mm3 (3.80-5.20); White Blood Cell Count 6.76 K/mm3 (4.00-11.30)
[2021-02-05 15:22] LABS: Alanine Aminotransfer (ALT/SGP 23 U/L (12-78); Albumin, Blood 2.2 g/dL (3.4-5.0); Albumin/Globulin Ratio 0.4 (0.8-1.8); Alk Phos 117 U/L (50-136); Anion Gap 8 mmol/L (6-16); Aspartate Aminotrans (AST/SGOT 26 U/L (12-37); Bilirubin, Total 0.4 mg/dL (0.1-1.0); Blood Urea Nitrogen 14 mg/dL (8-24); Bun/Creatinine Ratio 34.1 (12.0-20.0); CO2, Blood 19 mmol/L (21-32); Chloride, Blood 113 mmol/L (98-108); Creatinine, Blood 0.41 mg/dL (0.40-1.00); Globulin, Blood 5.8 g/dL (2.2-4.0); Glomerular Filtration Rate >60 (60-); Glucose, Blood 143 mg/dL (70-99); Potassium, Blood 4.2 mmol/L (3.5-5.5); Sodium, Blood 140 mmol/L (136-145); Troponin I <0.015 ng/mL (0.000-0.040)
== END 2021-02-05 18:40 | disposition home or self-care (01) ==
LOC: ER 14:16
PROVIDERS: Physician Assistant
DX: R07.9 Chest pain, unspecified (principal); I10 Essential (primary) hypertension; J44.9 Chronic obstructive pulmonary disease, unspecified; Z79.01 Long term (current) use of anticoagulants; Z91.09 Other allergy status, other than to drugs and biological substances; Z88.8 Allergy status to other drugs, medicaments and biological substances; Z79.899 Other long term (current) drug therapy; Z87.891 Personal history of nicotine dependence
CPT/HCPCS: 36415; 71046; 80053; 83880; 84484; 85025; 93005; 93010; 99285-25

== ENCOUNTER 2021-04-15 02:24 | Observation (INO) | payer MEDICARE, OTHER ==
[~2021-04-15] VITALS: Ht 149.9 cm; Wt 72.6 kg
[2021-04-15 03:16] LABS: U Amphetamine Screen Not Detected; U Barbituate Screen Not Detected; U Benzodiazapine Screen Not Detected; U Buprenorphine Screen Not Detected; U Cannabinoids Screen Not Detected; U Cocaine Screen Not Detected; U Methadone Screen Not Detected; U Methamphetamine Screen Not Detected; U Opiates Screen Not Detected; U Oxycodone Screen Not Detected; U Phencyclidine Screen Not Detected; U Propoxyphene Screen Not Detected
[2021-04-15 03:45] LABS: BASOPHILS ABSOLUTE AUTO 0.05 K/mm3 (0.00-0.23); BASOPHILS PERCENT AUTO 1 % (0-2); EOSINOPHILS ABSOLUTE AUTO 0.12 K/mm3 (0.00-0.68); EOSINOPHILS PERCENT AUTO 2 % (0-6); Hematocrit 38.2 % (33.0-51.0); Hemoglobin 11.8 g/dL (11.5-16.0); Mean Corpuscular HGB 27.3 pg (26.0-34.0); Mean Corpuscular HGB Conc 30.9 g/dL (31.5-36.5); Mean Corpuscular Volume 88 fL (80-100); Mean Platelet Volume 9.1 fL (9.1-12.4); Platelet Count 317 K/mm3 (150-400); RDW Coefficient Variation 17.2 % (11.7-14.2); RDW Standard Deviation 54.7 fL (35.1-46.3); Red Blood Cell Count 4.33 M/mm3 (3.80-5.20); White Blood Cell Count 6.57 K/mm3 (4.00-11.30)
[2021-04-15 03:50] LABS: IMMATURE GRAN ABSOLUTE AUTO 0.02 K/mm3 (0.00-0.10); IMMATURE GRAN PERCENT AUTO 0 % (0-1); LYMPHOCYTES ABSOLUTE AUTO 2.77 K/mm3 (0.84-5.20); LYMPHOCYTES PERCENT AUTO 42 % (21-46); MONOCYTES ABSOLUTE AUTO 0.83 K/mm3 (0.16-1.47); MONOCYTES PERCENT AUTO 13 % (4-13); NEUTROPHILS ABSOLUTE AUTO 2.78 K/mm3 (1.96-9.15); NEUTROPHILS PERCENT AUTO 42 % (41-73)
[2021-04-15 04:03] LABS: Acetaminophen, Random 7.4 ug/mL (10.0-30.0); Alanine Aminotransfer (ALT/SGP 15 U/L (12-78); Albumin, Blood 2.4 g/dL (3.4-5.0); Albumin/Globulin Ratio 0.4 (0.8-1.8); Alk Phos 85 U/L (50-136); Anion Gap 10 mmol/L (6-16); Aspartate Aminotrans (AST/SGOT 25 U/L (12-37); Bilirubin, Total 0.6 mg/dL (0.1-1.0); Blood Urea Nitrogen 6 mg/dL (8-24); Bun/Creatinine Ratio 16.4 (12.0-20.0); CO2, Blood 21 mmol/L (21-32); Calcium, Blood 8.5 mg/dL (8.5-10.1); Chloride, Blood 113 mmol/L (98-108); Creatinine, Blood 0.37 mg/dL (0.40-1.00); Ethanol (Alcohol), Blood, Med 148 mg/dL; Globulin, Blood 6.3 g/dL (2.2-4.0); Glomerular Filtration Rate >60 (60-); Glucose, Blood 92 mg/dL (70-99); Potassium, Blood 3.6 mmol/L (3.5-5.5); Salicylate <1.7 mg/dL (2.8-20.0); Sodium, Blood 144 mmol/L (136-145); Total Protein, Blood 8.7 g/dL (6.4-8.2)
[2021-04-15 05:21] LABS: SARS-Cov-2 (COVID-19) PCR, MMC NEGATIVE (NEGATIVE)
[2021-04-15] MEDS ORDERED: HYDROCODONE-AC1 EAC7 PO (21:37)
== END 2021-04-16 16:20 | disposition home or self-care (01) ==
LOC: ER 02:24 → EOR 02:25
PROVIDERS: ADMIT Student in an Organized Health Care Education/Training Program
DX: F33.9 Major depressive disorder, recurrent, unspecified (principal); F10.129 Alcohol abuse with intoxication, unspecified; G89.29 Other chronic pain; I10 Essential (primary) hypertension; J44.9 Chronic obstructive pulmonary disease, unspecified; Z88.8 Allergy status to other drugs, medicaments and biological substances; Z20.822 Contact with and (suspected) exposure to COVID-19
CPT/HCPCS: 36415; 80053; 85025; 96372; 99285-25; A9270; G0378; G0480; J1790; U0004

== ENCOUNTER → 2021-05-13 | Outpatient (CLI) | payer MEDICARE, OTHER ==
[~2021-05-13] MED LIST changes: +HYDROCODONE-AC1 EAC7 PO
[2021-05-13 16:42] LABS: Appearance, Urine Clear (Clear); Blood, Urine 3+ (Neg); Color, Urine Amber (P-Yellow); Glucose Qualitative, Urine Neg (Neg); Ketones, Urine Neg (Neg); Leukocyte Esterase, Urine 1+ (Neg); Nitrite, Urine Neg (Neg); Protein, Urine 3+ (Neg); Specific Gravity, Urine 1.025 (1.003-1.022); Urobilinogen, Urine 3+ (Normal)
[2021-05-13 17:03] LABS: Bilirubin, Urine 1+ (Neg)
[2021-05-13 17:04] LABS: Calcium Oxalate Crystals Many /hpf
[2021-05-13 17:05] LABS: Bacteria Many /hpf; Mucus Light (0-Heavy); Squamous Epithelial Cells Few /hpf (Few)
== END | disposition home or self-care (01) ==
LOC: LAB 15:15 → LAB SHORT 15:15
PROVIDERS: Registered Nurse
DX: R30.0 Dysuria (principal)
CPT/HCPCS: 81001; 87086

== ENCOUNTER 2021-05-23 08:39 | Emergency (ER) | payer MEDICARE, OTHER ==
[~2021-05-23] VITALS: Ht 152.4 cm; Wt 72.6 kg
[2021-05-23 09:42] LABS: BASOPHILS ABSOLUTE AUTO 0.05 K/mm3 (0.00-0.23); BASOPHILS PERCENT AUTO 1 % (0-2); EOSINOPHILS ABSOLUTE AUTO 0.04 K/mm3 (0.00-0.68); EOSINOPHILS PERCENT AUTO 1 % (0-6); Hematocrit 37.4 % (33.0-51.0); Hemoglobin 11.4 g/dL (11.5-16.0); IMMATURE GRAN ABSOLUTE AUTO 0.03 K/mm3 (0.00-0.10); IMMATURE GRAN PERCENT AUTO 0 % (0-1); LYMPHOCYTES ABSOLUTE AUTO 1.72 K/mm3 (0.84-5.20); LYMPHOCYTES PERCENT AUTO 25 % (21-46); MONOCYTES ABSOLUTE AUTO 0.91 K/mm3 (0.16-1.47); MONOCYTES PERCENT AUTO 13 % (4-13); Mean Corpuscular HGB 28.3 pg (26.0-34.0); Mean Corpuscular HGB Conc 30.5 g/dL (31.5-36.5); Mean Corpuscular Volume 93 fL (80-100); Mean Platelet Volume 9.5 fL (9.1-12.4); NEUTROPHILS ABSOLUTE AUTO 4.05 K/mm3 (1.96-9.15); NEUTROPHILS PERCENT AUTO 60 % (41-73); Platelet Count 292 K/mm3 (150-400); RDW Coefficient Variation 19.9 % (11.7-14.2); RDW Standard Deviation 67.5 fL (35.1-46.3); Red Blood Cell Count 4.03 M/mm3 (3.80-5.20)
[2021-05-23 10:09] LABS: Alanine Aminotransfer (ALT/SGP 18 U/L (12-78); Albumin, Blood 2.2 g/dL (3.4-5.0); Albumin/Globulin Ratio 0.4 (0.8-1.8); Alk Phos 67 U/L (50-136); Anion Gap 7 mmol/L (6-16); Aspartate Aminotrans (AST/SGOT 36 U/L (12-37); Bilirubin, Total 1.1 mg/dL (0.1-1.0); Blood Urea Nitrogen 17 mg/dL (8-24); Bun/Creatinine Ratio 35.8 (12.0-20.0); CO2, Blood 22 mmol/L (21-32); Calcium, Blood 8.4 mg/dL (8.5-10.1); Chloride, Blood 103 mmol/L (98-108); Creatinine, Blood 0.48 mg/dL (0.40-1.00); Globulin, Blood 5.8 g/dL (2.2-4.0); Glomerular Filtration Rate >60 (60-); Glucose, Blood 90 mg/dL (70-99); Potassium, Blood 4.5 mmol/L (3.5-5.5); Sodium, Blood 132 mmol/L (136-145)
[2021-05-23 10:20] LABS: Troponin I <0.015 ng/mL (0.000-0.040)
[2021-05-23 11:03] LABS: Source, Urine Catheter
[2021-05-23 11:14] LABS: Bilirubin, Urine Neg (Neg); Blood, Urine 2+ (Neg); Glucose Qualitative, Urine Neg (Neg); Ketones, Urine 1+ (Neg); Leukocyte Esterase, Urine Neg (Neg); Nitrite, Urine Neg (Neg); Protein, Urine 2+ (Neg); Urobilinogen, Urine 3+ (Normal)
[2021-05-23 11:22] LABS: Appearance, Urine Clear (Clear); Color, Urine Yellow (P-Yellow)
[2021-05-23 11:23] LABS: Bacteria Rare /hpf; Squamous Epithelial Cells Few /hpf (Few)
[2021-05-23 12:10] LABS: SARS-Cov-2 (COVID-19) PCR, MMC POSITIVE (NEGATIVE)
== END 2021-05-23 15:05 | disposition home or self-care (01) ==
LOC: ER 08:39
PROVIDERS: Physician Assistant; Student in an Organized Health Care Education/Training Program
DX: U07.1 COVID-19 (principal); Z23 Encounter for immunization; E86.0 Dehydration; R06.02 Shortness of breath; E87.1 Hypo-osmolality and hyponatremia; R41.0 Disorientation, unspecified; Z88.8 Allergy status to other drugs, medicaments and biological substances; Z79.899 Other long term (current) drug therapy; I10 Essential (primary) hypertension; J44.9 Chronic obstructive pulmonary disease, unspecified
CPT/HCPCS: 36415; 70450; 71045; 80053; 81001; 83690; 84484; 85025; 93005; 93010; 99285-25; A9270; J7120; M0243; P9612; Q0243; U0004

== ENCOUNTER 2021-05-31 15:43 | Emergency (ER) | payer MEDICARE, OTHER ==
[~2021-05-31] VITALS: Ht 149.9 cm; Wt 70.3 kg
[2021-05-31 16:15] LABS: BASOPHILS ABSOLUTE AUTO 0.06 K/mm3 (0.00-0.23); BASOPHILS PERCENT AUTO 1 % (0-2); EOSINOPHILS ABSOLUTE AUTO 0.16 K/mm3 (0.00-0.68); EOSINOPHILS PERCENT AUTO 2 % (0-6); Hematocrit 35.6 % (33.0-51.0); Hemoglobin 10.4 g/dL (11.5-16.0); IMMATURE GRAN ABSOLUTE AUTO 0.03 K/mm3 (0.00-0.10); IMMATURE GRAN PERCENT AUTO 0 % (0-1); LYMPHOCYTES ABSOLUTE AUTO 1.44 K/mm3 (0.84-5.20); LYMPHOCYTES PERCENT AUTO 16 % (21-46); MONOCYTES ABSOLUTE AUTO 0.79 K/mm3 (0.16-1.47); MONOCYTES PERCENT AUTO 9 % (4-13); Mean Corpuscular HGB 28.6 pg (26.0-34.0); Mean Corpuscular HGB Conc 29.2 g/dL (31.5-36.5); Mean Corpuscular Volume 98 fL (80-100); NEUTROPHILS ABSOLUTE AUTO 6.29 K/mm3 (1.96-9.15); NEUTROPHILS PERCENT AUTO 72 % (41-73); Platelet Count 181 K/mm3 (150-400); RDW Standard Deviation 71.7 fL (35.1-46.3); Red Blood Cell Count 3.64 M/mm3 (3.80-5.20); White Blood Cell Count 8.77 K/mm3 (4.00-11.30)
[2021-05-31 16:29] LABS: Troponin I <0.015 ng/mL (0.000-0.040)
[2021-05-31 16:30] LABS: Alanine Aminotransfer (ALT/SGP 16 U/L (12-78); Albumin/Globulin Ratio 0.3 (0.8-1.8); Alk Phos 69 U/L (50-136); Anion Gap 6 mmol/L (6-16); Aspartate Aminotrans (AST/SGOT 20 U/L (12-37); Bilirubin, Total 0.5 mg/dL (0.1-1.0); Blood Urea Nitrogen 21 mg/dL (8-24); Bun/Creatinine Ratio 55.9 (12.0-20.0); CO2, Blood 22 mmol/L (21-32); Calcium, Blood 7.9 mg/dL (8.5-10.1); Chloride, Blood 114 mmol/L (98-108); Creatinine, Blood 0.38 mg/dL (0.40-1.00); Globulin, Blood 5.8 g/dL (2.2-4.0); Glomerular Filtration Rate >60 (60-); Glucose, Blood 164 mg/dL (70-99); Sodium, Blood 142 mmol/L (136-145); Total Protein, Blood 7.8 g/dL (6.4-8.2)
[2021-05-31] MEDS ORDERED: PRED20 PO (18:19)
[2021-05-31] MEDS ORDERED: POTASSIUM CHLO20 ME1 PO (18:19)
[2021-05-31] MEDS ORDERED: FURO20 PO (18:19)
== END 2021-05-31 19:08 | disposition home or self-care (01) ==
LOC: ER 15:43
PROVIDERS: Emergency Medicine
DX: J44.1 Chronic obstructive pulmonary disease with (acute) exacerbation (principal); I11.0 Hypertensive heart disease with heart failure; I50.9 Heart failure, unspecified; E87.6 Hypokalemia; Z88.8 Allergy status to other drugs, medicaments and biological substances; Z79.899 Other long term (current) drug therapy; Z79.01 Long term (current) use of anticoagulants
CPT/HCPCS: 71045; 80053; 83880; 84484; 85025; 93005; 93010; 94640; 96374; 96375; 99285-25; A9270; J1940; J2930

== ENCOUNTER 2021-07-09 06:03 | Observation (INO) | payer MEDICARE, OTHER ==
[~2021-07-09] VITALS: Ht 149.9 cm; Wt 72.7 kg
[~2021-07-09 06:03] MED LIST changes: +FURO20 PO; +Lopressor 50 mg50 MG PO; +POTASSIUM CHLO20 ME1 PO; +PRED20 PO; -TOPROL XL50 M1 PO
[2021-07-09] MEDS ORDERED: LANOXIN250 MCG PO (06:39)
[2021-07-09] MEDS ORDERED: VENL25 PO (06:39)
[2021-07-09] MEDS ORDERED: BUPRENORPHINE1 EAC9 TD (06:43)
[2021-07-09 08:05] LABS: Source, Urine Catheter
[2021-07-09 08:14] LABS: Bilirubin, Urine Neg (Neg); Blood, Urine 2+ (Neg); Glucose Qualitative, Urine Neg (Neg); Ketones, Urine 2+ (Neg); Leukocyte Esterase, Urine 1+ (Neg); Nitrite, Urine Pos (Neg); Protein, Urine 2+ (Neg); Urobilinogen, Urine 1+ (Normal)
[2021-07-09 08:23] LABS: Appearance, Urine Clear (Clear)
[2021-07-09 08:24] LABS: Color, Urine Yellow (P-Yellow)
[2021-07-09 08:25] LABS: Bacteria Few /hpf; Squamous Epithelial Cells Rare /hpf (Few); White Blood Cells, Urine 0-2 /hpf (0-5)
[2021-07-09 08:28] LABS: Mucus Heavy (0-Heavy)
[2021-07-09 08:31] LABS: BASOPHILS ABSOLUTE AUTO 0.06 K/mm3 (0.00-0.23); BASOPHILS PERCENT AUTO 1 % (0-2); EOSINOPHILS ABSOLUTE AUTO 0.01 K/mm3 (0.00-0.68); EOSINOPHILS PERCENT AUTO 0 % (0-6); Hemoglobin 13.8 g/dL (11.5-16.0); IMMATURE GRAN ABSOLUTE AUTO 0.04 K/mm3 (0.00-0.10); IMMATURE GRAN PERCENT AUTO 0 % (0-1); LYMPHOCYTES ABSOLUTE AUTO 1.83 K/mm3 (0.84-5.20); LYMPHOCYTES PERCENT AUTO 17 % (21-46); MONOCYTES ABSOLUTE AUTO 1.29 K/mm3 (0.16-1.47); MONOCYTES PERCENT AUTO 12 % (4-13); Mean Corpuscular HGB 28.6 pg (26.0-34.0); Mean Corpuscular HGB Conc 30.7 g/dL (31.5-36.5); Mean Corpuscular Volume 93 fL (80-100); Mean Platelet Volume 10.8 fL (9.1-12.4); NEUTROPHILS ABSOLUTE AUTO 7.63 K/mm3 (1.96-9.15); NEUTROPHILS PERCENT AUTO 70 % (41-73); Platelet Count 228 K/mm3 (150-400); RDW Coefficient Variation 17.3 % (11.7-14.2); Red Blood Cell Count 4.82 M/mm3 (3.80-5.20); White Blood Cell Count 10.86 K/mm3 (4.00-11.30)
[2021-07-09 08:54] LABS: Alanine Aminotransfer (ALT/SGP 15 U/L (12-78); Albumin, Blood 2.4 g/dL (3.4-5.0); Albumin/Globulin Ratio 0.4 (0.8-1.8); Alk Phos 144 U/L (50-136); Anion Gap 6 mmol/L (6-16); Aspartate Aminotrans (AST/SGOT 26 U/L (12-37); Bilirubin, Total 1.2 mg/dL (0.1-1.0); Blood Urea Nitrogen 8 mg/dL (8-24); CO2, Blood 26 mmol/L (21-32); Calcium, Blood 8.5 mg/dL (8.5-10.1); Chloride, Blood 105 mmol/L (98-108); Creatinine, Blood 0.47 mg/dL (0.40-1.00); Globulin, Blood 5.4 g/dL (2.2-4.0); Glomerular Filtration Rate >60 (60-); Glucose, Blood 111 mg/dL (70-99); Potassium, Blood 3.8 mmol/L (3.5-5.5); Sodium, Blood 137 mmol/L (136-145); Total Protein, Blood 7.8 g/dL (6.4-8.2)
[2021-07-09 10:36] LABS: Digoxin (Lanoxin) 0.92 ug/mL (0.80-2.00)
--- NOTE | 2021-07-09 21:56 | NUR ---
PATIENT IS A NEW ADMIT FROM THE ED. AXOX 3 AND SLOW TO REPSOND. BEDREST AND ON 2L O2 NC. PUREWICK IN PLACE FROM THE ED. DENIES CHEST PAIN, SOB, AND N/V. REPORTS DAUGHTER LIVES WITH HER IS NOT GOING WELL. PATIENT WANTING TO LEAVE LIVING ARRANGEMENTS. BLE MOTTLING FROM HX OF CELLULITIS. SCABS ON LARGE TOES. PATIENT ORIENTED TO ROOM AND CALL LIGHT SYSTEM. REPORTS WANTS TO WATCH TV AFTER EATING. CALL LIGHT IN REACH.
--- NOTE | 2021-07-09 22:27 | NUR ---
HOSPITALIST DR MELENDEZ CALLED WANTING DOSE FOR BUPRENORPHINE PATCH. CALLED PHARMACY AND REPORTED THEY DO NOT CARRY BUPRENORPHINE PATCH.
--- NOTE | 2021-07-10 04:28 | NUR ---
SHIFT SUMMARY PATIENT HAD NO ACUTE CHANGES OBSERVED. AXOX 3 AND BEDREST. ON 1L O2 NC. PIV REMAINS INTACT. NS INFUSING AT 75mL/HR X ONE BAG. PUREWICK IN PLACE DRAINING DARK TEA COLOR URINE. VSS/AFEBRILE. REPORTS BACK PAIN WITH MOVEMENT. DENIES SOB, AND N/V. RT IN TO SEE PATIENT. CALL LIGHT IN REACH. BED IN LOWEST POSITION. WILL CONTINUE TO MONITOR UNTIL DAY SHIFT NURSE ASSUMES CARE.
[2021-07-10 05:12] LABS: BASOPHILS ABSOLUTE AUTO 0.09 K/mm3 (0.00-0.23); BASOPHILS PERCENT AUTO 1 % (0-2); EOSINOPHILS ABSOLUTE AUTO 0.13 K/mm3 (0.00-0.68); EOSINOPHILS PERCENT AUTO 1 % (0-6); Hematocrit 45.4 % (33.0-51.0); Hemoglobin 13.1 g/dL (11.5-16.0); IMMATURE GRAN ABSOLUTE AUTO 0.03 K/mm3 (0.00-0.10); IMMATURE GRAN PERCENT AUTO 0 % (0-1); LYMPHOCYTES ABSOLUTE AUTO 2.58 K/mm3 (0.84-5.20); LYMPHOCYTES PERCENT AUTO 28 % (21-46); MONOCYTES ABSOLUTE AUTO 1.44 K/mm3 (0.16-1.47); MONOCYTES PERCENT AUTO 16 % (4-13); Mean Corpuscular HGB 28.5 pg (26.0-34.0); Mean Corpuscular HGB Conc 28.9 g/dL (31.5-36.5); Mean Platelet Volume 11.2 fL (9.1-12.4); NEUTROPHILS ABSOLUTE AUTO 4.84 K/mm3 (1.96-9.15); NEUTROPHILS PERCENT AUTO 53 % (41-73); Platelet Count 169 K/mm3 (150-400); RDW Coefficient Variation 17.8 % (11.7-14.2); RDW Standard Deviation 64.4 fL (35.1-46.3); Red Blood Cell Count 4.59 M/mm3 (3.80-5.20); White Blood Cell Count 9.11 K/mm3 (4.00-11.30)
[2021-07-10 05:24] LABS: Mean Corpuscular Volume 99 fL (80-100)
[2021-07-10 06:17] LABS: Alanine Aminotransfer (ALT/SGP 14 U/L (12-78); Albumin, Blood 1.9 g/dL (3.4-5.0); Albumin/Globulin Ratio 0.4 (0.8-1.8); Alk Phos 113 U/L (50-136); Anion Gap 12 mmol/L (6-16); Aspartate Aminotrans (AST/SGOT 40 U/L (12-37); Bilirubin, Total 0.9 mg/dL (0.1-1.0); Blood Urea Nitrogen 11 mg/dL (8-24); Bun/Creatinine Ratio 26.8 (12.0-20.0); CO2, Blood 18 mmol/L (21-32); Calcium, Blood 7.9 mg/dL (8.5-10.1); Chloride, Blood 108 mmol/L (98-108); Creatinine, Blood 0.41 mg/dL (0.40-1.00); Globulin, Blood 4.8 g/dL (2.2-4.0); Glomerular Filtration Rate >60 (60-); Glucose, Blood 95 mg/dL (70-99); Potassium, Blood 4.2 mmol/L (3.5-5.5); Sodium, Blood 138 mmol/L (136-145); Total Protein, Blood 6.7 g/dL (6.4-8.2)
[2021-07-10] MEDS ORDERED: VENL25 PO (10:57)
[2021-07-10] MEDS ORDERED: FUROSEMIDE20 MG PO (15:16)
[2021-07-10] MEDS ORDERED: METR500 PO (15:19)
--- NOTE | 2021-07-11 04:13 | NUR ---
SHIFT SUMMARY PATIENT HAD NO ACUTE CHANGES OBSERVED. AXOX 4 AND ONE ASSIST TO BSC-BR. ON 3L O2 NC. DENIES PAIN, SOB, AND N/V. VSS/AFEBRILE. PIV REMAINS INTACT. SLEPT MOST OF THE SHIFT. COOPERATIVE WITH CARE. CALL LIGHT IN REACH. BED IN LOWEST POSITION. WILL CONTINUE TO MONITOR UNTIL DAY SHIFT NURSE ASSUMES CARE.
[2021-07-11 06:43] LABS: Albumin, Blood 1.7 g/dL (3.4-5.0); Anion Gap 5 mmol/L (6-16); Blood Urea Nitrogen 11 mg/dL (8-24); Bun/Creatinine Ratio 24.9 (12.0-20.0); CO2, Blood 27 mmol/L (21-32); Calcium, Blood 8.2 mg/dL (8.5-10.1); Chloride, Blood 108 mmol/L (98-108); Creatinine, Blood 0.44 mg/dL (0.40-1.00); Glomerular Filtration Rate >60 (60-); Glucose, Blood 124 mg/dL (70-99); Phosphorus, Blood 3.4 mg/dL (2.5-4.9); Potassium, Blood 3.6 mmol/L (3.5-5.5); Sodium, Blood 140 mmol/L (136-145)
--- NOTE | 2021-07-12 05:32 | NUR ---
SHIFT SUMMARY NO ACUTE CHANGES TO REPORT THIS SHIFT. PT HAS RESTED MOST OF THE NIGHT, SHE HAS DENIED PAIN. INDEPENDENT IN THE ROOM. VITALS STABLE, ASSESSMENT REMAINS UNCHANGED. STILL WAITING FOR PLACEMENT, BED IN LOWEST POSITION, CALL LIGHT WITHIN REACH.
--- NOTE | 2021-07-12 19:55 | NUR ---
SHIFT SUMMARY: PT HAD NO ACUTE EVENTS TODAY. PT REPORTED AT END OF SHIFT SHE DOES NOT TAKE DIGOXIN. DAUGHTER TO BRING IN MOST RECENT MEDICATION LIST AND GO OVER IN THE AM.
[2021-07-13] MEDS ORDERED: Prinivil10 MG PO (03:04)
--- NOTE | 2021-07-13 05:37 | NUR ---
SHIFT SUMMMARY NO ACUTE CHANGES TO REPORT THIS SHIFT, PT HAS RESTED T/O THE SHIFT AND HAS DENIED NEEDS, VITALS STABLE. PT STILL AWAITING PLACEMENT AT THIS TIME. BED IN LOWEST POSITION, CALL LIGHT WITHIN REACH.
--- NOTE | 2021-07-13 18:57 | NUR ---
SHIFT SUMMARY: PT A/O X 4 STANDBY ASSIST. PT PAIN TO LOWER BACK MANAGED WITH NORCO. SHE WAS UP IN CHAIR FOR MEALS X 2-3 HOURS TODAY. BP REMAINS LOW T/OUT THE DAY. BP MEDICATIONS HELD THIS AM. PT IS ASYMPTOMATIC.
--- NOTE | 2021-07-14 06:29 | NUR ---
SHIFT SUMMARY PATIENT ALERT AND ORIENTED. MEDICATED PER EMAR FOR PAIN. HAD NO COMPLAINTS OF SHORTNESS OF BREATH. IS DYSPNIC ON EXERTION. NO ACUTE ISSUES NOTED OVERNIGHT. CALL LIGHT WITHIN REACH. REPORT GIVEN TO ONCOMING RN.
[2021-07-14 17:19] LABS: Influenza A, PCR NEGATIVE (NEGATIVE); Influenza B, PCR NEGATIVE (NEGATIVE); Resp Syncytial Virus, PCR NEGATIVE (NEGATIVE)
[2021-07-14 17:29] LABS: SARS-Cov-2 (COVID-19) PCR, MMC POSITIVE (NEGATIVE)
--- NOTE | 2021-07-14 18:39 | NUR ---
SHIFT SUMMARY PT AxOx4. PT PLEASANT AND COOPERATIVE WITH CARE. PT BREATHING WITHOUT DIFFICULTY ON RA. PT C/O PAIN IN BACK AND ARM, MEDICATED PER EMAR. PT HAD DC PENDING TO [facility] TODAY, WAS INTERCEPTED BY POSITIVE COVID TEST. PT STATES SHE HAS NO SYMPTOMS AND HAS TESTED POSITIVE 4 TIMES IN THE LAST 4 MONTHS. PT CURRENTLY RESTING CHAIR EATING DINNER. CALL LIGHT IN REACH. DENIES ANY NEEDS AT THIS TIME.
--- NOTE | 2021-07-15 05:18 | NUR ---
SHIFT SUMMARY ASSUMED CARE AT 1900/O ACUTE EVENTS OVERNIGHT. PT REMAINS IN ENHANCED ISOLATION DUE TO +COVID. ON 2L O2 VIA NC, O2 SATS 98%. AAOX4. C/O CHRONIC PAIN TO BACK, MEDICATED WITH NORCO 10/325MG PRN PER EMAR WITH GOOD EFFECT. NO OTHER COMPLAINTS VOICED. BED IS IN LOW POSITION WITH THE CALL LIGHT WITHIN EASY REACH. WILL CONTINUE TO MONITOR.
--- NOTE | 2021-07-15 13:12 | NUR ---
REPORT TO SHERLYN AT [facility]. ANSWER ALL QUESTIONS. TO GET TRANSFERRED AT 1430 VIA W/C ON OXYGEN. PER NO NEW PAIN MEDS IS ON SUBOXONE PATCH. AWAITING RIDE
== END 2021-07-15 14:15 ==
LOC: ER 06:03 → ERHOLD 06:04 → MEDS 19:00
PROVIDERS: Emergency Medicine; Family Medicine; Internal Medicine; ADMIT Internal Medicine
DX: E86.0 Dehydration (principal); U07.1 COVID-19; I48.91 Unspecified atrial fibrillation; I11.0 Hypertensive heart disease with heart failure; I50.22 Chronic systolic (congestive) heart failure; J44.9 Chronic obstructive pulmonary disease, unspecified; R62.7 Adult failure to thrive; G89.29 Other chronic pain; M54.9 Dorsalgia, unspecified; J96.11 Chronic respiratory failure with hypoxia; F32.A Depression, unspecified; G47.33 Obstructive sleep apnea (adult) (pediatric); E88.09 Other disorders of plasma-protein metabolism, not elsewhere classified; I95.9 Hypotension, unspecified; Z86.19 Personal history of other infectious and parasitic diseases; Z88.8 Allergy status to other drugs, medicaments and biological substances; Z79.01 Long term (current) use of anticoagulants; Z99.81 Dependence on supplemental oxygen
CPT/HCPCS: 0241U; 36415; 71045; 80053; 80069; 80162; 81001; 85025; 87086; 93005; 93010; 94640; 94664; 94760; 96365; 96372; 96375; 97110; 97161; 97165; 97530; 97535; 99285-25; A9270; G0378; J0696; J1650; J2405; J7030; P9612

== ENCOUNTER → 2021-09-16 | Outpatient (CLI) | payer MEDICARE, OTHER ==
[~2021-09-16] MED LIST changes: +BUPRENORPHINE1 EAC9 TD; +FUROSEMIDE20 MG PO; +LANOXIN250 MCG PO; +METR500 PO; +VENL25 PO
[2021-09-16 18:07] LABS: Source, Urine Clean Catch
[2021-09-16 19:31] LABS: Bilirubin, Urine Neg (Neg); Blood, Urine 4+ (Neg); Glucose Qualitative, Urine Neg (Neg); Ketones, Urine 1+ (Neg); Leukocyte Esterase, Urine 2+ (Neg); Nitrite, Urine Pos (Neg); Protein, Urine 2+ (Neg); Urobilinogen, Urine 2+ (Normal)
[2021-09-16 19:47] LABS: Appearance, Urine Hazy (Clear); Color, Urine Pale Yellow (P-Yellow)
[2021-09-16 19:48] LABS: Bacteria Many /hpf; Squamous Epithelial Cells Few /hpf (Few)
[2021-09-16 19:49] LABS: Mucus Light (0-Heavy)
== END | disposition home or self-care (01) ==
LOC: LAB 16:34 → LAB SHORT 16:34 → LAB FUT 03-02 15:45
PROVIDERS: Registered Nurse
DX: R30.0 Dysuria (principal)
CPT/HCPCS: 81001

== ENCOUNTER 2021-09-29 05:27 | Emergency (ER) | payer MEDICARE, OTHER ==
[~2021-09-29] VITALS: Ht 157.5 cm; Wt 102.1 kg
== END 2021-09-29 07:30 | disposition home or self-care (01) ==
LOC: ER 05:27
DX: S09.90XA Unspecified injury of head, initial encounter (principal); S16.1XXA Strain of muscle, fascia and tendon at neck level, initial encounter; J44.9 Chronic obstructive pulmonary disease, unspecified; I10 Essential (primary) hypertension; I48.91 Unspecified atrial fibrillation; Z79.899 Other long term (current) drug therapy; W18.30XA Fall on same level, unspecified, initial encounter
CPT/HCPCS: 36415; 70450; 72125; 93005; 93010; 99284-25

== ENCOUNTER 2021-10-13 14:48 | Emergency (ER) | payer MEDICARE, OTHER ==
[~2021-10-13] VITALS: Ht 149.9 cm; Wt 68.0 kg
[2021-10-13] MEDS ORDERED: FUROSEMIDE40 MG PO (17:57)
[2021-10-13 19:00] LABS: BASOPHILS ABSOLUTE AUTO 0.05 K/mm3 (0.00-0.23); BASOPHILS PERCENT AUTO 1 % (0-2); EOSINOPHILS ABSOLUTE AUTO 0.12 K/mm3 (0.00-0.68); EOSINOPHILS PERCENT AUTO 2 % (0-6); Hematocrit 45.3 % (33.0-51.0); Hemoglobin 13.9 g/dL (11.5-16.0); IMMATURE GRAN ABSOLUTE AUTO 0.03 K/mm3 (0.00-0.10); IMMATURE GRAN PERCENT AUTO 0 % (0-1); LYMPHOCYTES PERCENT AUTO 31 % (21-46); MONOCYTES ABSOLUTE AUTO 0.89 K/mm3 (0.16-1.47); MONOCYTES PERCENT AUTO 13 % (4-13); Mean Corpuscular HGB 28.2 pg (26.0-34.0); Mean Corpuscular HGB Conc 30.7 g/dL (31.5-36.5); Mean Corpuscular Volume 92 fL (80-100); Mean Platelet Volume 9.9 fL (9.1-12.4); NEUTROPHILS ABSOLUTE AUTO 3.54 K/mm3 (1.96-9.15); NEUTROPHILS PERCENT AUTO 53 % (41-73); Platelet Count 156 K/mm3 (150-400); RDW Coefficient Variation 24.5 % (11.7-14.2); Red Blood Cell Count 4.93 M/mm3 (3.80-5.20); White Blood Cell Count 6.73 K/mm3 (4.00-11.30)
[2021-10-13 19:17] LABS: Alanine Aminotransfer (ALT/SGP 20 U/L (12-78); Albumin/Globulin Ratio 0.4 (0.8-1.8); Alk Phos 91 U/L (50-136); Anion Gap 5 mmol/L (6-16); Aspartate Aminotrans (AST/SGOT 31 U/L (12-37); Bilirubin, Total 1.4 mg/dL (0.1-1.0); Blood Urea Nitrogen 13 mg/dL (8-24); CO2, Blood 29 mmol/L (21-32); Calcium, Blood 8.2 mg/dL (8.5-10.1); Chloride, Blood 106 mmol/L (98-108); Creatinine, Blood 0.52 mg/dL (0.40-1.00); Globulin, Blood 5.2 g/dL (2.2-4.0); Glomerular Filtration Rate >60 (60-); Glucose, Blood 91 mg/dL (70-99); Potassium, Blood 3.6 mmol/L (3.5-5.5); Sodium, Blood 140 mmol/L (136-145); Total Protein, Blood 7.2 g/dL (6.4-8.2)
[2021-10-13 19:22] LABS: Source, Urine Clean Catch
[2021-10-13 19:24] LABS: Appearance, Urine Hazy (Clear); Blood, Urine 4+ (Neg); Color, Urine Amber (P-Yellow); Glucose Qualitative, Urine Neg (Neg); Ketones, Urine Neg (Neg); Leukocyte Esterase, Urine 2+ (Neg); Nitrite, Urine Neg (Neg); Protein, Urine 1+ (Neg); Urobilinogen, Urine 3+ (Normal)
[2021-10-13 19:39] LABS: Bilirubin, Urine 1+ (Neg)
[2021-10-13 19:43] LABS: Bacteria Many /hpf; Red Blood Cells, Urine 0-2 /hpf (0-2); Squamous Epithelial Cells Rare /hpf (Few)
[2021-10-13 19:44] LABS: Mucus Light (0-Heavy)
[2021-10-13] MEDS ORDERED: CEPH500 PO (19:56)
== END 2021-10-13 20:49 | disposition home or self-care (01) ==
LOC: ER 14:48
PROVIDERS: Physician Assistant
DX: N39.0 Urinary tract infection, site not specified (principal); I48.91 Unspecified atrial fibrillation; I10 Essential (primary) hypertension; J44.9 Chronic obstructive pulmonary disease, unspecified; Z88.8 Allergy status to other drugs, medicaments and biological substances; Z79.899 Other long term (current) drug therapy
CPT/HCPCS: 51701; 80053; 81001; 82140; 83690; 85025; 87077; 87086; 87186; 96374; 99283-25; J0696

== ENCOUNTER 2021-10-25 12:26 | Emergency (ER) | payer MEDICARE, OTHER ==
[~2021-10-25] VITALS: Ht 149.9 cm; Wt 68.0 kg
[~2021-10-25 12:26] MED LIST changes: +FUROSEMIDE40 MG PO
[2021-10-25] MEDS ORDERED: ACET325 (13:29)
[2021-10-25] MEDS ORDERED: NARCAN4 M1 (13:31)
[2021-10-25] MEDS ORDERED: ONDA4ODT (13:32)
[2021-10-25] MEDS ORDERED: BREO ELLIPTA 11 EAC1 IH (13:35)
[2021-10-25] MEDS ORDERED: POTA10T PO (13:37)
== END 2021-10-25 15:16 | disposition home or self-care (01) ==
LOC: ER 12:26
DX: M25.551 Pain in right hip (principal); Z88.8 Allergy status to other drugs, medicaments and biological substances; Z79.899 Other long term (current) drug therapy; I48.91 Unspecified atrial fibrillation; I10 Essential (primary) hypertension; J44.9 Chronic obstructive pulmonary disease, unspecified; G47.30 Sleep apnea, unspecified; Z87.891 Personal history of nicotine dependence
CPT/HCPCS: 73502; 99283-25

== ENCOUNTER → 2021-12-03 | Outpatient (CLI) | payer MEDICARE, OTHER ==
[~2021-12-03] MED LIST changes: +ACET325; +NARCAN4 M1; +ONDA4ODT; +POTA10T PO
[2021-12-03 18:43] LABS: Appearance, Urine Clear (Clear); Bilirubin, Urine Neg (Neg); Blood, Urine Neg (Neg); Color, Urine Yellow (P-Yellow); Glucose Qualitative, Urine Neg (Neg); Ketones, Urine Neg (Neg); Leukocyte Esterase, Urine Neg (Neg); Nitrite, Urine Neg (Neg); Protein, Urine Neg (Neg); Urobilinogen, Urine 2+ (Normal)
== END | disposition home or self-care (01) ==
LOC: LAB SHORT 07:00
PROVIDERS: Registered Nurse
DX: N39.0 Urinary tract infection, site not specified (principal)
CPT/HCPCS: 81003